=== PATIENT | female | born 2000 | race Two or more races ===

== ENCOUNTER 2024-10-28 13:38 | Outpatient (AMB) | payer MEDICAID, SELFPAY ==
[2024-10-28 13:48] VITALS: BP 139/84; PULSE 80; RESP 16; TEMP 36.8; O2SAT 99; BMI 33.5
--- NOTE | 2024-10-28 13:48 | OBCLNT_ITS ---
Vital Signs 10/28/24 13:48 Height 1.5 m Height Method Stated Weight 75.296 kg Weight Measurement Method Standing Scale BMI 33.5 BP 139/84 H Blood Pressure Source Automatic Cuff Blood Pressure Location Left Upper Arm Position Sitting Respiration 16 Pulse 80 Pulse Source Monitor Temp 98.2 F Temp Source Oral Pulse Oximetry (%) 99 Oxygen Delivery Method Room Air Allergies/Home Meds Allergies & Medications Allergies No Known Allergies Allergy (Verified 10/28/24 13:50) Medication Reconciliation No Known Home Medications 10/28/24 [History Confirmed 10/28/24] Intake Visit Data Collection New Patient or Established: Established Patient (seen at [facility] within 3 years) Reason for Visit:: OB Transfer of Care Seen by Clinical Staff ONLY (RN/MA): No Agricultural Produce 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 Discussed the benefits of quitting smoking with patient. Encouraged patient to quit smoking and provided Cessation assistance materials and resources. Tobacco Use: Cigarette Years smoked: 10 Are you interested in Quitting?: Yes Would you like additional Smoking Cessation Counseling?: Yes Questionnaires Covid-19 Vaccine Questionnaire Has patient been vacinated for Covid-19 Have you been vacinated for Covid-19: Yes PHQ-9 PHQ-2 Over the last 2 weeks, how often have you been bothered by any of the following problems? 1. Little interest or pleasure in doing things: not at all 2. Feeling down, depressed, or hopeless: not at all Total score: 0 PHQ-9 3. Trouble falling or staying asleep, or sleeping too much: Not at all 4. Feeling tired or having little energy: Not at all 5. Poor appetite or overeating: Not at all 6. Feeling bad about yourself - or that you are a failure or have let yourself or your family down: Not at all 7. Trouble concentrating on things, such as reading the newspaper or watching television: Not at all 8. Moving or speaking so slowly that other people could have noticed? - Or the opposite - being so fidgety or restless that you have been moving around a lot more than usual: not at all 9. Thoughts that you would be better off or of hurting yourself in some way: Not at all Total score: 0 If you checked off any problems, how difficult have these problems made it for you to do your work, take care of things at home, or get along with other people?: not difficult at all Source: Developed by Drs. Jadiel Miranda, Elsie Sosa, Reji Loco and colleagues, with an educational chelsea from [employer]. Social History Living Situation History Housing: House Tobacco History Smoking Status: Light (< 1 pack/day) Second Hand Smoke Exposure: Yes Alcohol History Alcohol Intake: Never Domestic Abuse History Do You Feel Safe at Home: Yes Past Medical History Past Medical History Have you ever been diagnosed with any of the following: Neurological Problems Seizures: No Cardiology Problems Congestive Heart Failure: No Hypertension: Yes Respiratory Problems Chronic Obstructive Pulmonary Disease (COPD): No Stomache/Intestinal Problems Hepatitis: No Genital/Urinary Problems Renal Disease: No Endocrine Problems Diabetes Mellitus Type 1: No Diabetes Mellitus Type 2: No Other Problems Hospitalization: No Down Syndrome: No Developmental Delay: No Shingles: No Falls: No Blood Transfusions: No Blood Transfusion Reaction: No Anesthesia Reactions: No Organ Transplant: No Chemotherapy: No Radiation Therapy: No Hyperbaric Therapy: No MRSA: No VRSA: No Vancomycin-Resistant Enterococci: No Human Immunodeficiency Virus (HIV): No Chicken Pox: No Measles: No Mumps: No Rubella (Tristanian Measles): No Pertussis: No Clostridium Difficile: No Cancer: No History of Present Illness HPI Narrative Patient presents for transfer of care at 31 weeks and 5 days gestation. Her last menstrual period was 02-17-2024, with an initial estimated due date of 11-23-2024. However, a 10-week 5-day ultrasound adjusted the due date to 12-25-2024, which was confirmed by a subsequent 26-week 3-day ultrasound. The patient is with a history of hypertension, type 2 diabetes, and one previous section due to preeclampsia. She is currently taking metformin, labetalol, and baby aspirin. Her recent blood pressure readings have been 138-140. The patient reports experiencing cramps, which are attributed to the stretching of the scar as the fetus grows. She notes that the cramps can be severe enough to prevent movement, but they typically resolve within 30 minutes. Her blood sugar levels are being monitored, with morning and post-meal levels discussed. Recent lab results show blood group A positive, hemoglobin 13.8, platelet count 183, rubella immune, RPR non-reactive, hepatitis B-negative, HIV- negative, gonorrhea and chlamydia-negative, one-hour glucose 178, and AFB negative. The patient is scheduled for twice-weekly hospital visits to monitor the baby and check her blood pressure. A is planned for 37 or 38 weeks, depending on blood pressure control. Medical History includes hypertension, type 2 diabetes, previous section, and history of preeclampsia. Current medications include metformin, labetalol, and baby aspirin. The patient reports cramps attributed to stretching of scar in the musculoskeletal system review. Diagnostic Test Results and Labs: - Ultrasound (06-04-2024): 10-week 5-day ultrasound yields a due date of 12-25-2024 - Ultrasound (Date N/A): 26 weeks and 3 days ultrasound is consistent with the first trimester ultrasound - Blood group: A positive - Hemoglobin: 13.8 - Platelet count: 183 - Rubella: Immune - RPR: Non-reactive - Hepatitis B: Negative - HIV: Negative - Gonorrhea and chlamydia: Negative - One-hour glucose: 178 - AFB: Negative OB Initial Visit Menstrual History Menstrual reliability: definite Flow: normal Menstrual regularity: regular Monthly: Yes Age at menarche: 10 On control pills at conception: Yes OB History : 3 Para: 2 Hx # Pregnancies: 1 Hx Total # of Abortions (Spontaneous & Elective): 1 # of Living Children: 1 Delivery History 1st : Child's name: HUSAM date: 06/10/21 sex: male Gestational age at delivery (weeks): 32 Delivery type: weight (lbs): 2721.554 g History of depression before or after : No Infection History & Risk Evaluation History of STDs: none HIV risk evaluation: low risk Hepatitis B risk evaluation: low risk Patient or partner has history of Genital Herpes: No Varicella/chicken pox status: immunized Genetic Screening & History Genetic Screening/Teratology Counseling - Includes patient, baby's father, or anyone in either family with: 1. Patient's age 35 years or older as of estimated date of delivery: No 2. Thalassemia (Nepali, Portuguese, Mediterranean, or Background); MCV less than 80: No 3. Neural Tube Defect (Meningomyelocele, Spina Bifida, or Anencephaly): No 4. Congenital Heart Defect: No 5. Down Syndrome: No 6. Shaji-Sachs (Ashkenazi Roman Catholic, Cajun, Bulgarian [place] Citizen): No 7. Beba Disease (Ashkenazi Roman Catholic): No 8. Familial Dysautonomia (Ashkenazi Roman Catholic): No 9. Sickle Cell Disease or Trait (): No 10. Hemophilia or other blood disorders: No 11. Muscular Dystrophy: No 12. Cystic Fibrosis: No 13. Yalobusha's Chorea: No 14. Mental Retardation/Autism: No 15. Other inherited genetic or chromosomal disorder: No 16. Maternal Metabolic Disorder (EG,TYPE 1 Diabetes, PKU): No 17. Patient or baby's father had a child with defects not listed above: No 18. Recurrent loss or a stillbirth: No 19. Medications (including supplements, vitamins, herbs or otc drugs)/illicit/recreational drugs/alcohol since last menstrual period: No 20. Any other: No Infection History 1. Live with someone with TB or exposed to TB: No 2. Rash or viral illness since last menstrual period: No 3. Hepatitis B,C: No Other (see comments) Source: [employer] OB Flowsheet OB Flowsheet Initial Weight: Not Recorded Date -?-?-?-?-?-?-?-?-?-?-?-?- EGA Weight Edema CTX Effacement BP Fundal ht Pres Dilation Effacement Station Visit Note Alb Glu FHR Mov 10/28/24 -?-?-?-?-?-?-?-?-?-?-?-?- 32w 1d 75.296 kg 139/84 145 Review of Systems Review of Systems Systems Reviewed: All systems reviewed, normal except as documented Exam General Limitations: no limitations General Appearance: alert, in no apparent distress, comfortable, cooperative, healthy appearing, well developed and well groomed Head Head exam: atraumatic, normocephalic and normal inspection Neck Neck exam: Present normal inspection, full ROM and trachea midline Chest Chest inspection: Present normal inspection and symmetric chest wall rise Abdominal Abdominal exam: Present soft and normal bowel sounds Extremities Extremities exam: Present normal inspection and full ROM Back Back exam: Present normal inspection and full ROM Psych Psychiatric exam: Present normal affect and normal mood Skin Skin exam: Present warm, dry, intact and normal color Assessment & Plan Diagnosis / Problem List (1) Type 2 diabetes mellitus affecting in third trimester, antepartum: Status: Acute Plan: Type 2 Diabetes Mellitus: Continue metformin 500 mg BID. Monitor blood glucose levels (morning and post-meal). Assess need for additional diabetic management based on glucose monitoring results. (2) Chronic hypertension with exacerbation during : Status: Acute Plan: Chronic Hypertension: Continue labetalol 200 mg TID. Weekly blood pressure checks. Monitor for signs of preeclampsia. (3) Supervision of high risk , unspecified, third trimester: Status: Acute (4) Maternal care for low transverse scar from previous delivery: Status: Acute Plan: (, 31w5d): Schedule bi-weekly hospital visits for monitoring and blood pressure checks. Plan for at 37 or 38 weeks depending on blood pressure control. Ultrasound scheduled for tomorrow at [facility]. Weekly appointments scheduled for next three weeks. Book after reviewing tomorrow's ultrasound results. Continue metformin 500 mg BID, labetalol 200 mg TID, and baby aspirin. Monitor blood glucose levels (morning and post-meal). Perform additional labs to check kidney function, liver function, and urinalysis. Advise warm showers, hydration, and rest for cramping; instruct to go to hospital if pain becomes severe. Office Procedures OB Clinic LOC & Office Proc's Nursing/Assessment Patient Status: Initial/New Patient OB Clinic Nursing Assessment: BP Monitoring, Medication Reconciliation, Update PMH in EMR and Vital Signs OB Clinic Coordination of Care: Consent,records obtained, informed consent, Ed ucation Simp Pt/Fam, 1 Ins Authorization, Lab and Imaging orders and Staff clarify orders Special Needs: Heart tones New Patient Charge New Patient Point Assignment: [id number] New Patient Point Charge: BILINGUAL LEGAL ASSISTANT Level 4 (3099-3609) Antepartum Initial or Follow-up Antepartum Initial Visit: Yes
== END 2024-10-28 14:05 | disposition home or self-care (01) ==
LOC: HODSOBC 13:38
PROVIDERS: PCP Family Medicine; Supervising Provider Obstetrics & Gynecology; Visit Provider Obstetrics & Gynecology
DX: O09.93 Supervision of high risk pregnancy, unspecified, third trimester (principal); O10.913 Unspecified pre-existing hypertension complicating pregnancy, third trimester; O34.211 Maternal care for low transverse scar from previous cesarean delivery; O24.113 Pre-existing type 2 diabetes mellitus, in pregnancy, third trimester; Z3A.31 31 weeks gestation of pregnancy
CPT/HCPCS: 99204; 99214; G0463

== ENCOUNTER 2024-11-04 13:09 | Outpatient (AMB) | payer MEDICAID, SELFPAY ==
[2024-11-04 13:26] VITALS: BP 136/89; PULSE 92; RESP 16; TEMP 36.8; O2SAT 97; BMI 34.1
--- NOTE | 2024-11-04 13:26 | AMB.OBVISIT ---
Vital Signs 11/04/24 13:26 Height 1.5 m Height Method Stated Weight 76.771 kg Weight Measurement Method Standing Scale BMI 34.1 BP 136/89 H Blood Pressure Source Automatic Cuff Blood Pressure Location Left Upper Arm Position Sitting Respiration 16 Pulse 92 Pulse Source Monitor Temp 98.2 F Temp Source Oral Pulse Oximetry (%) 97 Oxygen Delivery Method Room Air Allergies/Home Meds Allergies & Medications Allergies No Known Allergies Allergy (Verified 11/04/24 13:28) Medication Reconciliation No Known Home Medications 10/28/24 [History Confirmed 10/28/24] Intake Visit Data Collection New Patient or Established: Established Patient (seen at [facility] within 3 years) Reason for Visit:: OBC Seen by Clinical Staff ONLY (RN/MA): No Telephone Operator Required: No Do You Feel Safe at Home: Yes Authorities Contacted: N/A PCP or OBGYN visit in last 3 months: Yes Date of Last PCP or OBGYN visit: 10/28/24 Hx Now: Yes Are you currently on any form of Control: No Pain Present Currently: No Pain Scale Used: Choi-Malik/Numerical Pain scale:: 0 Smoking Status Smoking Status: Never smoker Questionnaires Covid-19 Vaccine Questionnaire Has patient been vacinated for Covid-19 Have you been vacinated for Covid-19: Yes PHQ-9 PHQ-2 Over the last 2 weeks, how often have you been bothered by any of the following problems? 1. Little interest or pleasure in doing things: not at all 2. Feeling down, depressed, or hopeless: not at all Total score: 0 PHQ-9 8. Moving or speaking so slowly that other people could have noticed? - Or the opposite - being so fidgety or restless that you have been moving around a lot more than usual: not at all Source: Developed by Drs. Jadiel Miranda, Elsie Sosa, Reji Looc and colleagues, with an educational chelsea from [employer]. Depression screen completed yes Social History Living Situation History Marital Status: Single Lives With: Family Housing: House Tobacco History Smoking Status: Never smoker Second Hand Smoke Exposure: Yes Alcohol History Alcohol Intake: Never Domestic Abuse History Do You Feel Safe at Home: Yes Past Medical History Past Medical History Have you ever been diagnosed with any of the following: Neurological Problems Seizures: No Cardiology Problems Congestive Heart Failure: No Hypertension: Yes Respiratory Problems Chronic Obstructive Pulmonary Disease (COPD): No Stomache/Intestinal Problems Hepatitis: No Genital/Urinary Problems Renal Disease: No Endocrine Problems Diabetes Mellitus Type 1: No Diabetes Mellitus Type 2: No Other Problems Hospitalization: No Down Syndrome: No Developmental Delay: No Shingles: No Falls: No Blood Transfusions: No Blood Transfusion Reaction: No Anesthesia Reactions: No Organ Transplant: No Chemotherapy: No Radiation Therapy: No Hyperbaric Therapy: No MRSA: No VRSA: No Vancomycin-Resistant Enterococci: No Human Immunodeficiency Virus (HIV): No Chicken Pox: No Measles: No Mumps: No Rubella (Estonian Measles): No Pertussis: No Clostridium Difficile: No Cancer: No History of Present Illness HPI Narrative History of Present Illness Patient presents for a follow-up angela visit at 33 weeks and 1 day gestation. She is with a history of hypertension, type 2 diabetes mellitus, and previous section for preeclampsia. Recent preeclampsia labs were performed on 10/28/2024, revealing a hemoglobin of 11.3, random glucose of 137, and creatinine of 0.51. CMP showed slightly elevated alkaline phosphatase of 130, AST 11, and ALT 10. Urine uteujfm-vm-aoxofwrgzi ratio was 187.1, and LDH was low at 114. The patient reports checking her blood glucose levels once or twice daily. Her fasting glucose levels are typically in the 80s, while postprandial levels have been elevated, ranging from 150-170 mg/dL. She is currently taking metformin twice daily for glycemic control. The patient denies any signs or symptoms of preeclampsia in this . Medications and Supplements - Metformin, taken 2 times a day - heart rate: 155 bpm - Abdomen: Fundal height measured at 33 weeks. Laboratory, Imaging, and Diagnostic Test Results - Hemoglobin: 11.3 g/dL (10/28/2024) - Random glucose: 137 mg/dL (10/28/2024) - Creatinine: 0.51 mg/dL (10/28/2024) - Comprehensive Metabolic Panel (CMP): - Alkaline phosphatase: 130 U/L (slightly elevated) - AST: 11 U/L - ALT: 10 U/L - Urine protein/creatinine ratio: 187.1 mg/g - LDH: 114 U/L (low) Review of Systems Review of Systems Systems Reviewed: All systems reviewed, normal except as documented Visit LEXX Calculator Estimated Delivery Date Method Current WG Current Estimate 12/22/24 Ultrasound #2 33w 1d Other Estimates 11/23/24 LMP (Uncertain) 37w 2d 12/26/24 Ultrasound #1 32w 4d Initial Weight: Not Recorded Date <del>?</del> EGA Weight Edema CTX Effacement BP Fundal ht Pres Dilation Effacement Station Visit Note Alb Glu FHR Mov 10/28/24 <del>?</del> 32w 1d 75.296 kg 139/84 145 Exam General Limitations: no limitations General Appearance: alert, in no apparent distress, comfortable, cooperative, healthy appearing, well developed and well groomed Head Head exam: atraumatic, normocephalic and normal inspection Neck Neck exam: Present normal inspection, full ROM and trachea midline Chest Chest inspection: Present normal inspection and symmetric chest wall rise Abdominal Abdominal exam: Present soft and normal bowel sounds Extremities Extremities exam: Present normal inspection and full ROM Back Back exam: Present normal inspection and full ROM Psych Psychiatric exam: Present normal affect and normal mood Skin Skin exam: Present warm, dry, intact and normal color Assessment & Plan Diagnosis / Problem List (1) Type 2 diabetes mellitus affecting in third trimester, antepartum: Status: Acute (2) Chronic hypertension with exacerbation during : Status: Acute (3) Supervision of high risk , unspecified, third trimester: Status: Acute Plan: at 33 weeks 1 day, Patient is a 33 weeks 1 day woman with status. She has a history of hypertension, type 2 diabetes mellitus, and previous section for preeclampsia. Recent preeclampsia labs show hemoglobin 11.3, random glucose 137, creatinine 0.51, slightly elevated alkaline phosphatase 130, AST 11, ALT 10, urine protein/creatinine ratio 187.1, and LDH 114. These results indicate good kidney and liver function without signs of preeclampsia, allowing for continuation of to full term (39 weeks). - Continue monitoring until 39 weeks - Follow-up appointment in 2 weeks - Patient to monitor and record blood glucose levels 4 times daily (fasting and 1 hour after each meal) - Continue current metformin regimen (twice daily) - Patient to bring recorded blood glucose levels to next appointment Repeat on 12/09/2024@07:30 Type 2 Diabetes Mellitus Patient reports blood glucose levels of 80s fasting, and 150-170 post-prandial. She is currently on metformin twice daily. The clinician considers these levels acceptable for a patient on metformin, but emphasizes the importance of continued monitoring. - Continue metformin twice daily - Monitor blood glucose 4 times daily (fasting and 1 hour post-prandial) - Record blood glucose readings and bring to next appointment - Target post-prandial glucose levels below 180 (4) Maternal care for low transverse scar from previous delivery: Status: Acute Office Procedures OB Clinic LOC & Office Proc's Nursing/Assessment Patient Status: Established Patient OB Clinic Nursing Assessment: BP Monitoring, Medication Reconciliation, Update PMH in EMR and Vital Signs OB Clinic Coordination of Care: Consent,records obtained, informed consent, Education Simp Pt/Fam and Staff clarify orders Special Needs: Heart tones Established Patient Charge Established Patient Point Assignment: 105 Established Patient Point Charge: EP Level 3 (80-115)
== END 2024-11-04 13:35 | disposition home or self-care (01) ==
LOC: HODSOBC 13:09
PROVIDERS: PCP Obstetrics & Gynecology; Referring Provider Obstetrics & Gynecology; Supervising Provider Obstetrics & Gynecology; Visit Provider Obstetrics & Gynecology
DX: O09.93 Supervision of high risk pregnancy, unspecified, third trimester (principal); O24.113 Pre-existing type 2 diabetes mellitus, in pregnancy, third trimester; Z3A.33 33 weeks gestation of pregnancy; O34.211 Maternal care for low transverse scar from previous cesarean delivery
CPT/HCPCS: 99213; G0463

== ENCOUNTER 2024-11-10 09:02 | Outpatient (AMB) | payer MEDICAID, SELFPAY ==
[2024-11-10 09:10] VITALS: BP 151/101; PULSE 79; RESP 16; TEMP 36.2; O2SAT 98; BMI 33.5
--- NOTE | 2024-11-10 09:10 | AMB.OBVISIT ---
Vital Signs 11/10/24 09:10 Height 1.5 m Height Method Stated Weight 75.41 kg Weight Measurement Method Standing Scale BMI 33.5 BP 151/101 H Blood Pressure Source Automatic Cuff Blood Pressure Location Left Upper Arm Position Supine Respiration 16 Pulse 79 Pulse Source Monitor Temp 97.2 F Temp Source Oral Pulse Oximetry (%) 98 Oxygen Delivery Method Room Air Allergies/Home Meds Allergies & Medications Allergies No Known Allergies Allergy (Verified 11/11/24 12:48) Medication Reconciliation labetalol 200 mg tablet mg 11/10/24 [History] metformin 500 mg tablet mg 11/10/24 [History] vit no.95-ferrous fumarate 28 mg-folic acid 800 mcg tablet () tab PO 11/10/24 [History] Intake Visit Data Collection New Patient or Established: Established Patient (seen at [facility] within 3 years) Reason for Visit:: OBC Seen by Clinical Staff ONLY (RN/MA): No Solid Waste Facility Supervisor Required: No Do You Feel Safe at Home: Yes Authorities Contacted: N/A PCP or OBGYN visit in last 3 months: Yes Date of Last PCP or OBGYN visit: 11/10/24 Hx Now: Yes Are you currently on any form of Control: No Pain Present Currently: No Pain Scale Used: Choi-Malik/Numerical Pain scale:: 0 Smoking Status Smoking Status: Never smoker Questionnaires Covid-19 Vaccine Questionnaire Has patient been vacinated for Covid-19 Have you been vacinated for Covid-19: No PHQ-9 PHQ-2 Over the last 2 weeks, how often have you been bothered by any of the following problems? 1. Little interest or pleasure in doing things: not at all 2. Feeling down, depressed, or hopeless: not at all Total score: 0 PHQ-9 3. Trouble falling or staying asleep, or sleeping too much: Not at all 4. Feeling tired or having little energy: Not at all 5. Poor appetite or overeating: Not at all 6. Feeling bad about yourself - or that you are a failure or have let yourself or your family down: Not at all 7. Trouble concentrating on things, such as reading the newspaper or watching television: Not at all 8. Moving or speaking so slowly that other people could have noticed? - Or the opposite - being so fidgety or restless that you have been moving around a lot more than usual: not at all 9. Thoughts that you would be better off or of hurting yourself in some way: Not at all Total score: 0 Source: Developed by Drs. Jadiel Miranda, Elsie Sosa, Reji Loco and colleagues, with an educational chelsea from [employer]. Depression screen completed yes Social History Living Situation History Marital Status: Lives With: Family Housing: House Tobacco History Smoking Status: Never smoker Second Hand Smoke Exposure: Yes Alcohol History Alcohol Intake: Never Domestic Abuse History Do You Feel Safe at Home: Yes Past Medical History Past Medical History Have you ever been diagnosed with any of the following: Neurological Problems Seizures: No Cardiology Problems Congestive Heart Failure: No Hypertension: Yes Respiratory Problems Chronic Obstructive Pulmonary Disease (COPD): No Stomache/Intestinal Problems Hepatitis: No Genital/Urinary Problems Renal Disease: No Endocrine Problems Diabetes Mellitus Type 1: No Diabetes Mellitus Type 2: No Other Problems Hospitalization: No Down Syndrome: No Developmental Delay: No Shingles: No Falls: No Blood Transfusions: No Blood Transfusion Reaction: No Anesthesia Reactions: No Organ Transplant: No Chemotherapy: No Radiation Therapy: No Hyperbaric Therapy: No MRSA: No VRSA: No Vancomycin-Resistant Enterococci: No Human Immunodeficiency Virus (HIV): No Chicken Pox: No Measles: No Mumps: No Rubella (Japanese Measles): No Pertussis: No Clostridium Difficile: No Cancer: No History of Present Illness HPI Narrative patient at 34 weeks gestation presents for routine visit with significantly elevated blood pressure of 160/100. Patient denies pain but reports movement described as kicking. Patient states she took her blood pressure medication just before coming to the appointment. Patient has been monitoring blood glucose levels at home, with readings mostly within normal range except for one reading of 160. No CTX/LOF/VB, reports good FM+ Visit LEXX Calculator Estimated Delivery Date Method Current WG Current Estimate 12/22/24 Ultrasound #2 34w 2d Other Estimates 11/23/24 LMP (Uncertain) 38w 3d 12/26/24 Ultrasound #1 33w 5d Initial Weight: Not Recorded Date <del>?</del> EGA Weight Edema CTX Effacement BP Fundal ht Pres Dilation Effacement Station Visit Note Alb Glu FHR Mov 10/28/24 <del>?</del> 32w 1d 75.296 kg 139/84 145 Assessment & Plan Diagnosis / Problem List (1) Type 2 diabetes mellitus affecting in third trimester, antepartum: Status: Acute (2) Chronic hypertension with exacerbation during : Status: Acute Plan: Gestational hypertension with severe features at 34 weeks gestation patient at 34 weeks gestation presents with significantly elevated blood pressure of 160/100, indicating gestational hypertension with severe features. Patient denies pain but reports movement. Recent blood glucose readings are mostly within acceptable range, with one reading at 160. Patient reports taking antihypertensive medication just prior to the visit, which may not have taken full effect yet. - Immediate referral to labor and delivery for preeclampsia evaluation - Admission and potential delivery as clinically indicated - Laboratory tests to be performed at the hospital - Follow-up appointment scheduled for one week as a precaution - Continue monitoring blood glucose levels (3) Supervision of high risk , unspecified, third trimester: Status: Acute (4) Maternal care for low transverse scar from previous delivery: Status: Acute Office Procedures OB Clinic LOC & Office Proc's Nursing/Assessment Patient Status: Established Patient OB Clinic Nursing Assessment: BP Monitoring, Medication Reconciliation, Update PMH in EMR and Vital Signs OB Clinic Coordination of Care: Complex Care and Chronic Disease 1-5, Consent,records obtained, informed consent, Education Simp Pt/Fam and Staff clarify orders Established Patient Charge Established Patient Point Assignment: 100 Established Patient Point Charge: EP Level 3 (80-115)
== END 2024-11-10 09:19 | disposition home or self-care (01) ==
LOC: HODSOBC 09:02
PROVIDERS: PCP Obstetrics & Gynecology; Referring Provider Obstetrics & Gynecology; Supervising Provider Obstetrics & Gynecology; Visit Provider Obstetrics & Gynecology
DX: O09.93 Supervision of high risk pregnancy, unspecified, third trimester (principal); O24.113 Pre-existing type 2 diabetes mellitus, in pregnancy, third trimester; O10.913 Unspecified pre-existing hypertension complicating pregnancy, third trimester; Z3A.34 34 weeks gestation of pregnancy; O34.211 Maternal care for low transverse scar from previous cesarean delivery
CPT/HCPCS: 99213; G0463

== ENCOUNTER 2024-11-10 09:30 | Observation (INO) | payer MEDICAID, SELFPAY ==
[2024-11-10] VITALS (8 sets, daily range): BP systolic 128–152; BP diastolic 82–101; PULSE 68–88; RESP 17–98; TEMP 36.9; BMI 33.9
--- NOTE | 2024-11-10 09:34 | XR_ITS ---
Examination: Biophysical profile, ultrasound Date and time of exam: November 10, 2024 1106 hours INDICATIONS: Diagnosis hypertension, diagnosis diabetes Technique: Multiple transabdominal sonographic images of the pelvis abdomen obtained. Attention is directed to the breathing movement, gross body movement, amniotic fluid volume and tone. Findings: Amniotic fluid index 13.5 cm Total biophysical profile is 8 of 8. breathing movement is 2. Gross body movement is 2. tone is 2. Qualitative amniotic fluid volume is 2 Impression: Biophysical profile is 8 of 8.
[2024-11-10 10:33] LABS: Basophils % (Auto) 0 % (0-2.5); Eosinophils # (Auto) 0.1 Thou/mm3 (0.0-0.5); Eosinophils % (Auto) 2 % (0-10); Hematocrit 33.3 % (36.0-46.0); Hemoglobin 11.4 g/dL (12.0-16.0); Immature Granulocytes % (Auto) 1 % (0-0); Immature Granulocytes Auto 0.05 Thou/mm3 (0.00-0.00); Lymphocytes # (Auto) 2.9 Thou/mm3 (1.0-4.8); Lymphocytes % (Auto) 31 % (10-50); Mean Corpuscular HGB Conc 34.2 g/dl (31.0-37.0); Mean Corpuscular Hemoglobin 28.1 pg (25.0-35.0); Mean Corpuscular Volume 82 fL (80-100); Monocytes # (Auto) 0.4 Thou/mm3 (0.0-0.8); Monocytes % (Auto) 4 % (0-12); Neutrophils # (Auto) 5.8 Thou/mm3 (1.8-7.7); Neutrophils % (Auto) 62 % (37-80); Nucleated Red Blood Cell % 0 /100 WBC (0); Platelet Count 187 Thou/mm3 (140-440); RDW Standard Deviation 39.6 fL (36.4-46.3); Red Blood Count 4.06 Miln/mm3 (4.00-5.20); White Blood Count 9.3 Thou/mm3 (3.6-11.0)
[2024-11-10 10:33] LABS: Collection Type, Urine Clean Catch
[2024-11-10 10:52] LABS: INR 0.9 (0.9-1.3); Partial Thromboplastin Time 28.6 Seconds (22.0-36.0); Prothrombin Time 10.3 Seconds (9.0-12.2)
[2024-11-10 11:01] LABS: Alanine Aminotransferase < 7 U/L (10-49); Albumin, Serum 3.8 gm/dL (3.5-5.0); Albumin/Globulin Ratio 1.4 (1.2-2.2); Alkaline Phosphatase 124 U/L (46-116); Anion Gap 9 (7-16); Aspartate Amino Transferase 12 U/L (0-34); BUN/Creatinine Ratio 10 Ratio (12-20); Bilirubin,Total 0.3 mg/dL (0.3-1.2); Blood Urea Nitrogen 5 mg/dL (9-23); Calcium 9.2 mg/dL (8.3-10.6); Calcium (Corrected) 9.4 mg/dL (8.5-10.1); Carbon Dioxide 19.6 mMol/L (20.0-31.0); Chloride 106 mMol/L (98-107); Creatinine (Component) 0.5 mg/dL (0.6-1.3); Estimated Creatinine Clearance 151.8 mL/min (>60); Globulin 2.8 gm/dL (2.3-3.5); Glucose 80 mg/dL (74-106); LDH (Lactate Dehydrogenase) 135 U/L (120-246); Osmolality,Calculated 266 (275-295); Potassium 3.9 mMol/L (3.4-5.1); Sodium 135 mMol/L (136-145); Total Protein 6.6 gm/dL (5.7-8.2); Uric Acid 5.8 mg/dL (3.1-7.8); eGFR > 60 See Note
[2024-11-10 11:07] LABS: Syphilis Nonreactive (Nonreactive)
[2024-11-10 11:18] LABS: Bacteria,Urine 1+; Bilirubin,Urine Negative (Negative); Blood,Urine Negative (Negative); Clarity,Urine Turbid (Clear/Hazy); Color,Urine Lt-Yellow (Lt Yel-Yel); Glucose, Urine Negative (Negative); Ketones,Urine Negative (Negative); Leukocyte Esterase,Urine Positive (Negative); Nitrite,Urine Negative (Negative); Protein,Urine Negative (Neg - Trace); RBC,Urine 2 /hpf (0-3); Specific Gravity,Urine 1.012 (1.001-1.035); Squamous Epithelial Cell,Urine 37 /hpf (0-5); Urobilinogen,Urine Negative mg/dL (0.0-1.0); WBC,Urine 3 /hpf (0-5)
[2024-11-10 11:28] LABS: Fibrinogen 602 mg/dL (175-375)
== END 2024-11-10 12:10 | disposition home or self-care (01) ==
PROVIDERS: Admitting Provider Obstetrics & Gynecology; Visit Provider Obstetrics & Gynecology
DX: Z34.83 Encounter for supervision of other normal pregnancy, third trimester (principal); Z3A.33 33 weeks gestation of pregnancy
CPT/HCPCS: 36415; 59025; 59899; 76819; 80053; 81001; 83615; 84550; 85025; 85384; 85610; 85730; 86780; 86850; 86900; 86901

== ENCOUNTER 2024-11-11 12:24 | Outpatient (CLI) | payer MEDICAID, SELFPAY ==
[2024-11-11 12:37] VITALS: BP 121/73; PULSE 84
[2024-11-11 12:39] VITALS: BP 115/66; PULSE 84
[2024-11-11 12:52] VITALS: BP 121/73; PULSE 84; RESP 16; RESP 99; TEMP 36.7
[2024-11-11 12:59] VITALS: BP 124/83; PULSE 77
[2024-11-11 14:10] LABS: Protein Total, Urine 13 mg/dL (1-14)
[2024-11-11 14:35] LABS: Protein Total, 24 hr Urine 237 mg/24hr (<149); Protein Total, Urine Volume 1825 mL/24hr (600-1800)
== END 2024-11-11 13:21 | disposition home or self-care (01) ==
LOC: S4S1 12:29 → S4SX 12:29
PROVIDERS: Referring Provider Obstetrics & Gynecology; Visit Provider Obstetrics & Gynecology
DX: Z34.83 Encounter for supervision of other normal pregnancy, third trimester (principal); Z36.9 Encounter for antenatal screening, unspecified; Z3A.33 33 weeks gestation of pregnancy
CPT/HCPCS: 59025; 84156

== ENCOUNTER 2024-11-14 16:28 | Outpatient (CLI) | payer MEDICAID, SELFPAY ==
[2024-11-14] VITALS (20 sets, daily range): BP systolic 106–169; BP diastolic 75–95; PULSE 76–92; RESP 16–99; TEMP 36.8; O2SAT 98; BMI 33.9
[2024-11-14 17:09] LABS: Basophils % (Auto) 0 % (0-2.5); Eosinophils # (Auto) 0.1 Thou/mm3 (0.0-0.5); Eosinophils % (Auto) 1 % (0-10); Hematocrit 31.3 % (36.0-46.0); Hemoglobin 10.8 g/dL (12.0-16.0); Immature Granulocytes % (Auto) 0 % (0-0); Immature Granulocytes Auto 0.04 Thou/mm3 (0.00-0.00); Lymphocytes # (Auto) 2.9 Thou/mm3 (1.0-4.8); Lymphocytes % (Auto) 32 % (10-50); Mean Corpuscular HGB Conc 34.5 g/dl (31.0-37.0); Mean Corpuscular Hemoglobin 27.8 pg (25.0-35.0); Mean Corpuscular Volume 81 fL (80-100); Monocytes # (Auto) 0.4 Thou/mm3 (0.0-0.8); Monocytes % (Auto) 4 % (0-12); Neutrophils # (Auto) 5.6 Thou/mm3 (1.8-7.7); Neutrophils % (Auto) 62 % (37-80); Nucleated Red Blood Cell % 0 /100 WBC (0); Platelet Count 184 Thou/mm3 (140-440); RDW Standard Deviation 39.3 fL (36.4-46.3); Red Blood Count 3.89 Miln/mm3 (4.00-5.20)
[2024-11-14 17:16] LABS: Creatinine,Urine 64 mg/dL (30-125); Patient Height,Urine 59 Inches; Patient Weight,Urine 168 Pounds; Protein Total, Random Urine 14 mg/dL (1-14); Protein Total, Urine 14 mg/dL (1-14)
[2024-11-14 17:32] LABS: INR 0.9 (0.9-1.3); Partial Thromboplastin Time 28.1 Seconds (22.0-36.0); Prothrombin Time 10.3 Seconds (9.0-12.2)
[2024-11-14 17:34] LABS: Collection Type, Urine Clean Catch
[2024-11-14 17:37] LABS: Alanine Aminotransferase 8 U/L (10-49); Albumin, Serum 3.7 gm/dL (3.5-5.0); Albumin/Globulin Ratio 1.4 (1.2-2.2); Alkaline Phosphatase 124 U/L (46-116); Anion Gap 10 (7-16); Aspartate Amino Transferase < 10 U/L (0-34); BUN/Creatinine Ratio 13 Ratio (12-20); Bilirubin,Total 0.2 mg/dL (0.3-1.2); Blood Urea Nitrogen 8 mg/dL (9-23); Calcium 9.3 mg/dL (8.3-10.6); Calcium (Corrected) 9.5 mg/dL (8.5-10.1); Carbon Dioxide 21.6 mMol/L (20.0-31.0); Chloride 104 mMol/L (98-107); Creatinine (Component) 0.6 mg/dL (0.6-1.3); Estimated Creatinine Clearance 126.5 mL/min (>60); Fibrinogen 617 mg/dL (175-375); Globulin 2.7 gm/dL (2.3-3.5); Glucose 103 mg/dL (74-106); LDH (Lactate Dehydrogenase) 124 U/L (120-246); Osmolality,Calculated 270 (275-295); Potassium 3.5 mMol/L (3.4-5.1); Sodium 136 mMol/L (136-145); Total Protein 6.4 gm/dL (5.7-8.2); Uric Acid 5.7 mg/dL (3.1-7.8); eGFR > 60 See Note
[2024-11-14 17:43] LABS: Bilirubin,Urine Negative (Negative); Blood,Urine Negative (Negative); Clarity,Urine Clear (Clear/Hazy); Color,Urine Yellow (Lt Yel-Yel); Glucose, Urine Negative (Negative); Hyaline Casts,Urine < 1 /hpf (0-1); Ketones,Urine Negative (Negative); Leukocyte Esterase,Urine Negative (Negative); Nitrite,Urine Negative (Negative); Protein,Urine 1+ (Neg - Trace); RBC,Urine 2 /hpf (0-3); Specific Gravity,Urine 1.027 (1.001-1.035); Squamous Epithelial Cell,Urine 3 /hpf (0-5); Urobilinogen,Urine Negative mg/dL (0.0-1.0); WBC,Urine 1 /hpf (0-5)
[2024-11-14 18:23] LABS: Creatinine (Component) 0.5 mg/dL (0.6-1.3); Estimated Creatinine Clearance 151.8 mL/min (>60); eGFR > 60 See Note
[2024-11-14 18:34] LABS: Collection Time,Urine 24 Hours; Creatinine 24 Hour,Urine 1.2 gm/24hr (0.6-1.5); Creatinine Clearance Urine 169 mL/min (90-139); Protein Total, 24 hr Urine 263 mg/24hr (<149); Protein Total, Urine Volume 1875 mL/24hr (600-1800); Serum Creatinine Result 0.5 mg/dL; Total Volume,Urine 1875 mL (600-1800)
== END 2024-11-14 18:54 | disposition home or self-care (01) ==
LOC: S4S1 16:32 → S4SX 16:33
PROVIDERS: Referring Provider Obstetrics & Gynecology; Visit Provider Obstetrics & Gynecology
DX: Z34.83 Encounter for supervision of other normal pregnancy, third trimester (principal); Z36.9 Encounter for antenatal screening, unspecified; Z3A.34 34 weeks gestation of pregnancy
CPT/HCPCS: 36415; 59025; 80053; 81001; 82565; 82575; 83615; 84156; 84550; 85025; 85384; 85610; 85730

== ENCOUNTER 2024-11-18 09:35 | Outpatient (AMB) | payer MEDICAID, SELFPAY ==
[2024-11-18 09:57] VITALS: BP 156/94; PULSE 74; RESP 16; TEMP 36.5; O2SAT 97; BMI 33.5
--- NOTE | 2024-11-18 09:57 | AMB.OBVISIT ---
Vital Signs 11/18/24 09:57 Height 1.5 m Height Method Stated Weight 75.353 kg Weight Measurement Method Standing Scale BMI 33.5 BP 156/94 H Blood Pressure Source Automatic Cuff Blood Pressure Location Left Upper Arm Position Sitting Respiration 16 Pulse 74 Pulse Source Monitor Temp 97.7 F Temp Source Oral Pulse Oximetry (%) 97 Oxygen Delivery Method Room Air Allergies/Home Meds Allergies & Medications Allergies No Known Allergies Allergy (Verified 11/25/24 10:18) Intake Visit Data Collection New Patient or Established: Established Patient (seen at [facility] within 3 years) Reason for Visit:: CARE Seen by Clinical Staff ONLY (RN/MA): No Dental Instrument Maker Required: No Do You Feel Safe at Home: Yes Authorities Contacted: N/A PCP or OBGYN visit in last 3 months: Yes Hx Now: Yes Are you currently on any form of Control: No Pain Present Currently: No Pain Scale Used: Choi-Malik/Numerical Pain scale:: 0 Smoking Status Smoking Status: Never smoker Questionnaires Covid-19 Vaccine Questionnaire Has patient been vacinated for Covid-19 Have you been vacinated for Covid-19: Yes PHQ-9 PHQ-2 Over the last 2 weeks, how often have you been bothered by any of the following problems? 1. Little interest or pleasure in doing things: not at all 2. Feeling down, depressed, or hopeless: not at all Total score: 0 PHQ-9 3. Trouble falling or staying asleep, or sleeping too much: Not at all 4. Feeling tired or having little energy: Not at all 5. Poor appetite or overeating: Not at all 6. Feeling bad about yourself - or that you are a failure or have let yourself or your family down: Not at all 7. Trouble concentrating on things, such as reading the newspaper or watching television: Not at all 8. Moving or speaking so slowly that other people could have noticed? - Or the opposite - being so fidgety or restless that you have been moving around a lot more than usual: not at all 9. Thoughts that you would be better off or of hurting yourself in some way: Not at all Total score: 0 Source: Developed by Drs. Jadiel Miranda, Elsie Sosa, Reji Loco and colleagues, with an educational chelsea from [employer]. Depression screen completed yes Social History Living Situation History Marital Status: Lives With: Family Housing: House Tobacco History Smoking Status: Never smoker Second Hand Smoke Exposure: Yes Alcohol History Alcohol Intake: Never Substance Use History Substance Use: NONE Domestic Abuse History Do You Feel Safe at Home: Yes Past Medical History Past Medical History Have you ever been diagnosed with any of the following: Neurological Problems Cerebrovascular Accident (CVA): No Transient Ischemic Attacks (TIA): No Dementia: No Alzheimer's Disease: No Parkinson's Disease: No Brain Tumor: No Meningitis: No Seizures: No Epilepsy: No Multiple Sclerosis: No Cerebral Palsy: No Amyotrophic Lateral Sclerosis (ALS/Leesa Gehrig's): No Guillain-Carlisle Syndrome: No Spina Bifida: No Paralysis: No Peripheral Neuropathy: No Olson's Palsy: No Subdural Hematoma: No Migraine: No Head Trauma: No Spinal Cord Injury: No Traumatic Brain Injury: No Cardiology Problems Myocardial Infarction: No Cardiac Arrhythmia: No Atrial Fibrillation: No Angina: No Heart Murmur: No Coronary Artery Disease: No Atherosclerotic Heart Disease: No Peripheral Vascular Disease: No Hypercholesterolemia: No Aneurysm: No Congestive Heart Failure: No Congenital Heart Disease: No Valvular Heart Disease: No Rheumatic Fever: No Cardiomyopathy: No Edema: No Pericarditis: No Hypertension: Yes Hypotension: No Respiratory Problems Chronic Obstructive Pulmonary Disease (COPD): No Asthma: No Bronchitis: No Emphysema: No Pneumonia: No Pulmonary Fibrosis: No Tuberculosis: No Pulmonary Embolism: No Pulmonary Edema: No Sleep Apnea: No CPAP Dependent: No Respiratory Aspiration: No Smoking: No Smoking Cessation Counseling: No Smoking Exposure: No Tobacco Use: No Stomache/Intestinal Problems Liver Cancer: No Hepatitis: No Cirrhosis: No Pancreatic Cancer: No Pancreatitis: No Celiac Disease: No Ulcerative Colitis: No Diverticulitis: No Diverticulosis: No Ulcer: No Genital/Urinary Problems Chronic Kidney Disease: No Renal Disease: No Kidney Stones: No Polycystic Kidney Disease: No Neurogenic Bladder: No Inguinal Hernia: No Dialysis: No Prostate Cancer: No Benign Prostatic Hyperplasia: No Reproductive Problems Breast Cancer: No Endometriosis: No Fibroids: No Genital Herpes: No Gonorrhea: No Syphilis: No Musculoskeletal Problems Muscular Dystrophy: No Myasthenia Gravis: No Marfan's Syndrome: No Bone Cancer: No Arthritis: No Rheumatoid Arthritis: No Osteoporosis: No Degenerative Disk Disease: No Gout: No Scoliosis: No Head,Eye,Nose,Throat Problems Cataracts: No Glaucoma: No Blind: No Retinal Detachment: No Macular Degeneration: No Chronic Ear Infections: No Deafness: No Eye Prosthesis: No Endocrine Problems Diabetes Mellitus Type 1: No Diabetes Mellitus Type 2: No Girdwood's Syndrome: No [place]'s Disease: No Thyroid Cancer: No Adrenal Disease: No Graves' Disease: No Blood Problems Anemia: No Leukemia: No Hemophilia: No Thalassemia: No Sickle Cell Disease: No Clotting Problems: No Psychologic Problems Schizophrenia: No Recreational Drug Use: No Bipolar Disorder: No Depression: No Anxiety: No Behavior Problems: No Self-Mutilation: No Attention Deficit Disorder: No Attention Deficit Hyperactivity Disorder: No Depression: No Post Traumatic Stress Disorder: No Eating Disorder: No Other Problems Hospitalization: No Autoimmune Disease: No Down Syndrome: No Autism: No Developmental Delay: No Shingles: No Falls: No Blood Transfusions: No Blood Transfusion Reaction: No Anesthesia Reactions: No Organ Transplant: No Chemotherapy: No Radiation Therapy: No Hyperbaric Therapy: No MRSA: No VRSA: No Vancomycin-Resistant Enterococci: No Human Immunodeficiency Virus (HIV): No Chicken Pox: No Measles: No Mumps: No Rubella (Sami Measles): No Pertussis: No Clostridium Difficile: No Cancer: No Surgical History Angioplasty: No Pacemaker: No Sinus Surgery: No History of Present Illness HPI Narrative 24-year-old at 35 weeks and 1 day gestation presents for care. Patient has a history of type 2 diabetes and gestational hypertension. She was seen in labor and delivery yesterday for a scheduled non-stress test and biophysical profile, during which she had persistently elevated blood pressures. The patient reports the baby is active and denies contractions or other issues. She has been checking her blood sugars, which she reports are okay. No CTX/LOF/VB, reports good FM+ Repeat on 12/09/2024@07:30 Diagnostic Test Results and Labs: - Ultrasound (06-04-2024): 10-week 5-day ultrasound yields a due date of 12-25-2024 - Ultrasound (date not specified): 26 weeks and 3 days ultrasound is consistent with the first trimester ultrasound - Blood group: A positive - Hemoglobin: 13.8 - Platelet count: 183 - Rubella: Immune - RPR: Non-reactive - Hepatitis B: Negative - HIV: Negative - Gonorrhea and chlamydia: Negative - One-hour glucose: 178 - AFB: Negative - Hemoglobin: 11.3 g/dL (10/28/2024) - Random glucose: 137 mg/dL (10/28/2024) - Creatinine: 0.51 mg/dL (10/28/2024) - Comprehensive Metabolic Panel (CMP): - Alkaline phosphatase: 130 U/L (slightly elevated) - AST: 11 U/L - ALT: 10 U/L - Urine protein/creatinine ratio: 187.1 mg/g - LDH: 114 U/L (low) Review of Systems Review of Systems Systems Reviewed: All systems reviewed, normal except as documented Visit LEXX Calculator Estimated Delivery Date Method Current WG Current Estimate 12/22/24 Ultrasound #2 36w 4d Other Estimates 11/23/24 LMP (Uncertain) 40w 5d 12/26/24 Ultrasound #1 36w 0d Initial Weight: Not Recorded Date <del>?</del> EGA Weight Edema CTX Effacement BP Fundal ht Pres Dilation Effacement Station Visit Note Alb Glu FHR Mov 10/28/24 <del>?</del> 32w 1d 75.296 kg 139/84 145 Exam General Limitations: no limitations General Appearance: alert, in no apparent distress, comfortable, cooperative, healthy appearing, well developed and well groomed Head Head exam: atraumatic, normocephalic and normal inspection Neck Neck exam: Present normal inspection, full ROM and trachea midline Chest Chest inspection: Present normal inspection and symmetric chest wall rise Abdominal Abdominal exam: Present soft and normal bowel sounds Extremities Extremities exam: Present normal inspection and full ROM Back Back exam: Present normal inspection and full ROM Psych Psychiatric exam: Present normal affect and normal mood Skin Skin exam: Present warm, dry, intact and normal color Assessment & Plan Diagnosis / Problem List (1) Chronic hypertension with exacerbation during : Status: Acute (2) Type 2 diabetes mellitus affecting in third trimester, antepartum: Status: Acute (3) Supervision of high risk , unspecified, third trimester: Status: Acute (4) Maternal care for low transverse scar from previous delivery: Status: Acute Plan Gestational hypertension Patient is a 24-year-old at 35 weeks and 1 day gestation with a history of gestational hypertension. She was seen in labor and delivery yesterday for a scheduled non-stress test and biophysical profile, where persistently elevated blood pressures were noted. The current antihypertensive regimen is insufficient to control her blood pressure. - Increase labetalol from 200 mg TID to 400 mg TID - Patient to start increased dosage immediately - New prescription to be sent to patient's pharmacy - Reassess blood pressure at next NST appointment on - Follow-up appointment in one week Type 2 diabetes mellitus in Patient has a history of type 2 diabetes. She reports checking her blood sugar levels regularly, and they are currently well-controlled. - Continue current diabetes management - Ongoing blood glucose monitoring , high-risk Patient is a 24-year-old at 35 weeks and 1 day gestation with comorbidities of gestational hypertension and type 2 diabetes. Recent non-stress test and biophysical profile were reassuring, with good amniotic fluid levels and activity. heart rate during this visit was 165 bpm, which is within normal range. - Continue regular non-stress tests and biophysical profiles - Next NST scheduled for - section scheduled for December 09 at 7:30 AM - Weekly follow-up appointments until delivery Medical Decision Making Kenneth Velarde is a 24-year-old at 35 weeks and 1 day gestation with a history of type 2 diabetes and gestational hypertension presenting for care follow-up after persistently elevated blood pressures during a recent non-stress test and biophysical profile. The patient's blood pressure remains uncontrolled despite current labetalol therapy, necessitating a dose increase from 200mg TID to 400mg TID. This adjustment is consistent with common progression in , as increased medication requirements often correlate with growth. The non-stress test and biophysical profile from the previous day were reassuring, with good amniotic fluid levels and no signs of distress. Blood glucose levels are reported as stable. The management plan focuses on optimizing blood pressure control while continuing to monitor well-being and maternal glucose levels, balancing the risks of hypertension in with the benefits of prolonging gestation to term. Pt Education Educated the patient on labor signs, including regular contractions, lower back pain, and changes in vaginal discharge. Advised avoiding heavy lifting and getting adequate rest. Instructed to contact the office immediately if any signs occur. Discussed the importance of a balanced diet rich in folic acid, iron, and calcium, and provided a list of recommended and to-avoid foods. Emphasized avoiding high-sugar foods to reduce gestational diabetes risk. Encouraged hydration and frequent, small meals for energy. Additional Plan Follow Up: 1 Week Office Procedures OB Clinic LOC & Office Proc's Nursing/Assessment Patient Status: Established Patient OB Clinic Nursing Assessment: Medication Reconciliation, Update PMH in EMR and Vital Signs OB Clinic Coordination of Care: Complex Care and Chronic Disease 1-5, Consent,records obtained, informed consent, Education Simp Pt/Fam, Lab and Imaging orders, Results/Orders obtained and Staff clarify orders Special Needs: Heart tones Established Patient Charge Established Patient Point Assignment: 135 Established Patient Point Charge: EP Level 4 (120-155)
== END 2024-11-18 10:06 | disposition home or self-care (01) ==
LOC: HODSOBC 09:35
PROVIDERS: PCP Obstetrics & Gynecology; Referring Provider Obstetrics & Gynecology; Supervising Provider Obstetrics & Gynecology; Visit Provider Obstetrics & Gynecology
DX: O10.913 Unspecified pre-existing hypertension complicating pregnancy, third trimester (principal); O24.313 Unspecified pre-existing diabetes mellitus in pregnancy, third trimester; E11.8 Type 2 diabetes mellitus with unspecified complications; O09.93 Supervision of high risk pregnancy, unspecified, third trimester; O34.211 Maternal care for low transverse scar from previous cesarean delivery; Z3A.35 35 weeks gestation of pregnancy
CPT/HCPCS: 99214; G0463

== ENCOUNTER 2024-11-20 17:00 | Observation (INO) | payer MEDICAID, SELFPAY ==
[2024-11-20] VITALS (39 sets, daily range): BP systolic 0–171; BP diastolic 0–107; PULSE 68–91; RESP 18–99; TEMP 36.6; O2SAT 89–100; BMI 33.5
[2024-11-20] MEDS: NIFEdipine 10 MG CAPSULE PO (17:25)
[2024-11-20 17:52] LABS: Collection Type, Urine Clean Catch
[2024-11-20 18:04] LABS: Basophils % (Auto) 0 % (0-2.5); Eosinophils # (Auto) 0.2 Thou/mm3 (0.0-0.5); Eosinophils % (Auto) 2 % (0-10); Hematocrit 32.6 % (36.0-46.0); Hemoglobin 11.2 g/dL (12.0-16.0); Immature Granulocytes % (Auto) 0 % (0-0); Immature Granulocytes Auto 0.04 Thou/mm3 (0.00-0.00); Lymphocytes # (Auto) 3.3 Thou/mm3 (1.0-4.8); Lymphocytes % (Auto) 36 % (10-50); Mean Corpuscular HGB Conc 34.4 g/dl (31.0-37.0); Mean Corpuscular Volume 82 fL (80-100); Monocytes # (Auto) 0.5 Thou/mm3 (0.0-0.8); Monocytes % (Auto) 6 % (0-12); Neutrophils # (Auto) 5.3 Thou/mm3 (1.8-7.7); Neutrophils % (Auto) 57 % (37-80); Nucleated Red Blood Cell % 0 /100 WBC (0); Platelet Count 191 Thou/mm3 (140-440); White Blood Count 9.4 Thou/mm3 (3.6-11.0)
[2024-11-20 18:16] LABS: Bacteria,Urine 1+; Bilirubin,Urine Negative (Negative); Blood,Urine Negative (Negative); Clarity,Urine Clear (Clear/Hazy); Color,Urine Yellow (Lt Yel-Yel); Glucose, Urine Negative (Negative); Ketones,Urine Negative (Negative); Leukocyte Esterase,Urine Negative (Negative); Nitrite,Urine Negative (Negative); PH,Urine 8.5 (5.0-7.0); Protein,Urine 1+ (Neg - Trace); RBC,Urine 2 /hpf (0-3); Specific Gravity,Urine 1.024 (1.001-1.035); Squamous Epithelial Cell,Urine 14 /hpf (0-5); Urobilinogen,Urine Negative mg/dL (0.0-1.0); WBC,Urine 1 /hpf (0-5)
[2024-11-20 18:27] LABS: Alanine Aminotransferase < 7 U/L (10-49); Albumin, Serum 3.8 gm/dL (3.5-5.0); Albumin/Globulin Ratio 1.4 (1.2-2.2); Alkaline Phosphatase 134 U/L (46-116); Anion Gap 11 (7-16); Aspartate Amino Transferase 12 U/L (0-34); BUN/Creatinine Ratio 15 Ratio (12-20); Bilirubin,Total 0.3 mg/dL (0.3-1.2); Blood Urea Nitrogen 9 mg/dL (9-23); Calcium 9.2 mg/dL (8.3-10.6); Calcium (Corrected) 9.4 mg/dL (8.5-10.1); Carbon Dioxide 20.4 mMol/L (20.0-31.0); Chloride 105 mMol/L (98-107); Creatinine (Component) 0.6 mg/dL (0.6-1.3); Estimated Creatinine Clearance 125.7 mL/min (>60); Globulin 2.8 gm/dL (2.3-3.5); Glucose 75 mg/dL (74-106); LDH (Lactate Dehydrogenase) 134 U/L (120-246); Osmolality,Calculated 269 (275-295); Potassium 3.7 mMol/L (3.4-5.1); Sodium 136 mMol/L (136-145); Total Protein 6.6 gm/dL (5.7-8.2); Uric Acid 5.6 mg/dL (3.1-7.8); eGFR > 60 See Note
[2024-11-20 18:38] LABS: Fibrinogen 587 mg/dL (175-375); INR 0.9 (0.9-1.3); Partial Thromboplastin Time 28.5 Seconds (22.0-36.0)
== END 2024-11-20 19:45 | disposition home or self-care (01) ==
PROVIDERS: Admitting Provider Obstetrics & Gynecology; Visit Provider Obstetrics & Gynecology
DX: O26.893 Other specified pregnancy related conditions, third trimester (principal); R03.0 Elevated blood-pressure reading, without diagnosis of hypertension; Z3A.35 35 weeks gestation of pregnancy
CPT/HCPCS: 36415; 59025; 59899; 80053; 81001; 83615; 84550; 85025; 85384; 85610; 85730; A9270

== ENCOUNTER 2024-11-25 10:08 | Outpatient (AMB) | payer MEDICAID, SELFPAY ==
--- NOTE | 2024-11-25 10:12 | AMB.OBVISIT ---
Vital Signs 11/25/24 10:17 Height 1.5 m Height Method Stated Weight 76.204 kg Weight Measurement Method Standing Scale BMI 33.9 BP 141/97 H Blood Pressure Source Automatic Cuff Blood Pressure Location Left Upper Arm Position Sitting Respiration 16 Pulse 74 Pulse Source Monitor Temp 97.8 F Temp Source Oral Pulse Oximetry (%) 98 Oxygen Delivery Method Room Air Allergies/Home Meds Allergies & Medications Allergies No Known Allergies Allergy (Verified 12/01/24 19:08) Medication Reconciliation metformin 500 mg tablet 500 mg PO BID 11/10/24 [History Confirmed 12/01/24] vit no.95-ferrous fumarate 28 mg-folic acid 800 mcg tablet () 1 tab PO DAILY 11/10/24 [History Confirmed 12/01/24] ferrous sulfate 325 mg (65 mg iron) tablet 325 mg PO QDAY #30 tabs 12/04/24 [Rx] nifedipine 30 mg tablet,extended release 24 hr 30 mg PO BID 30 days #60 tabs 12/04/24 [Rx] polyethylene glycol 3350 17 gram oral powder packet 17 g PO QDAY #14 ea 12/04/24 [Rx] labetalol 200 mg tablet 400 mg (2 x 200 mg) PO TID 30 days #180 tabs 12/05/24 [Rx] Intake Visit Data Collection New Patient or Established: Established Patient (seen at [facility] within 3 years) Reason for Visit:: CARE Seen by Clinical Staff ONLY (RN/MA): No 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 1. Little interest or pleasure in doing things: not at all 2. Feeling down, depressed, or hopeless: not at all Total score: 0 PHQ-9 3. Trouble falling or staying asleep, or sleeping too much: Not at all 4. Feeling tired or having little energy: Not at all 5. Poor appetite or overeating: Not at all 6. Feeling bad about yourself - or that you are a failure or have let yourself or your family down: Not at all 7. Trouble concentrating on things, such as reading the newspaper or watching television: Not at all 8. Moving or speaking so slowly that other people could have noticed? - Or the opposite - being so fidgety or restless that you have been moving around a lot more than usual: not at all 9. Thoughts that you would be better off or of hurting yourself in some way: Not at all Total score: 0 Source: Developed by Drs. Jadiel Miranda, Elsie Sosa, Reji Loco and colleagues, with an educational chelsea from [employer]. Depression screen completed yes Social History Living Situation History Lives With: Family Housing: House Tobacco History Smoking Status: Never smoker Second Hand Smoke Exposure: Yes Alcohol History Alcohol Intake: Never Substance Use History Substance Use: NONE Domestic Abuse History Do You Feel Safe at Home: Yes Past Medical History Past Medical History Have you ever been diagnosed with any of the following: Neurological Problems Cerebrovascular Accident (CVA): No Transient Ischemic Attacks (TIA): No Dementia: No Alzheimer's Disease: No Parkinson's Disease: No Brain Tumor: No Meningitis: No Seizures: No Epilepsy: No Multiple Sclerosis: No Cerebral Palsy: No Amyotrophic Lateral Sclerosis (ALS/Leesa Gehrig's): No Guillain-[place] Syndrome: No Spina Bifida: No Paralysis: No Peripheral Neuropathy: No Olson's Palsy: No Subdural Hematoma: No Migraine: No Head Trauma: No Spinal Cord Injury: No Traumatic Brain Injury: No Cardiology Problems Myocardial Infarction: No Cardiac Arrhythmia: No Atrial Fibrillation: No Angina: No Heart Murmur: No Coronary Artery Disease: No Atherosclerotic Heart Disease: No Peripheral Vascular Disease: No Hypercholesterolemia: No Aneurysm: No Congestive Heart Failure: No Congenital Heart Disease: No Valvular Heart Disease: No Rheumatic Fever: No Cardiomyopathy: No Edema: No Pericarditis: No Hypertension: Yes Hypotension: No Respiratory Problems Chronic Obstructive Pulmonary Disease (COPD): No Asthma: No Bronchitis: No Emphysema: No Pneumonia: No Pulmonary Fibrosis: No Tuberculosis: No Pulmonary Embolism: No Pulmonary Edema: No Sleep Apnea: No CPAP Dependent: No Respiratory Aspiration: No Smoking: No Smoking Cessation Counseling: No Smoking Exposure: No Tobacco Use: No Stomache/Intestinal Problems Liver Cancer: No Hepatitis: No Cirrhosis: No Pancreatic Cancer: No Pancreatitis: No Celiac Disease: No Ulcerative Colitis: No Diverticulitis: No Diverticulosis: No Ulcer: No Colorectal Cancer: No Irritable Bowel: No Crohn's Disease: No Obstructive Bowel: No Hiatal Hernia: No Hemorrhoids: No Gastroesophageal Reflux Disease: No Polyps: No Genital/Urinary Problems Chronic Kidney Disease: No Renal Disease: No Kidney Stones: No Polycystic Kidney Disease: No Neurogenic Bladder: No Inguinal Hernia: No Dialysis: No Prostate Cancer: No Benign Prostatic Hyperplasia: No Reproductive Problems Breast Cancer: No Endometriosis: No Fibroids: No Genital Herpes: No Gonorrhea: No Previous Pregnancies: Yes Syphilis: No Musculoskeletal Problems Muscular Dystrophy: No Myasthenia Gravis: No Marfan's Syndrome: No Bone Cancer: No Arthritis: No Rheumatoid Arthritis: No Osteoporosis: No Degenerative Disk Disease: No Gout: No Scoliosis: No Carpal Tunnel Syndrome: No Fibromyalgia: No Fractures: No Degenerative Joint Disease: No Osteomyelitis: No Poliovirus: No Head,Eye,Nose,Throat Problems Cataracts: No Glaucoma: No Blind: No Retinal Detachment: No Macular Degeneration: No Chronic Ear Infections: No Deafness: No Eye Prosthesis: No Endocrine Problems Diabetes Mellitus Type 1: No Diabetes Mellitus Type 2: No Tee's Syndrome: No Gretna's Disease: No Thyroid Cancer: No Parathyroid Disease: No Pituitary Disease: No Adrenal Disease: No Graves' Disease: No Blood Problems Anemia: No Leukemia: No Hemophilia: No Thalassemia: No Sickle Cell Disease: No Clotting Problems: No Psychologic Problems Schizophrenia: No Recreational Drug Use: No Bipolar Disorder: No Depression: No Anxiety: No Behavior Problems: No Self-Mutilation: No Attention Deficit Disorder: No Attention Deficit Hyperactivity Disorder: No Depression: No Post Traumatic Stress Disorder: No Eating Disorder: No Other Problems Hospitalization: No Down Syndrome: No Autism: No Developmental Delay: No Shingles: No Falls: No Blood Transfusions: No Blood Transfusion Reaction: No Anesthesia Reactions: No Organ Transplant: No Chemotherapy: No Radiation Therapy: No Hyperbaric Therapy: No MRSA: No VRSA: No Vancomycin-Resistant Enterococci: No Human Immunodeficiency Virus (HIV): No Chicken Pox: No Measles: No Mumps: No Rubella (Polish Measles): No Pertussis: No Clostridium Difficile: No Cancer: No Surgical History Angioplasty: No Appendectomy: No Bariatric Surgery: No Breast Surgery: No Cancer Surgery: No Carotid Endarterectomy: No Cholecystectomy: No Colectomy: No Hysterectomy: No Pacemaker: No Sinus Surgery: No History of Present Illness HPI Narrative The patient reports improved blood pressure compared to last week. She confirms taking her medication as prescribed. The patient states the fetus is active. She denies experiencing any contractions. The patient has been attending regular monitoring appointments on Mondays and , with her most recent visit occurring yesterday. No CTX/LOF/VB, reports good FM+ Repeat on 12/09/2024@07:30 Diagnostic Test Results and Labs: - Ultrasound (06-04-2024): 10-week 5-day ultrasound yields a due date of 12-25-2024 - Ultrasound (date not specified): 26 weeks and 3 days ultrasound is consistent with the first trimester ultrasound - Blood group: A positive - Hemoglobin: 13.8 - Platelet count: 183 - Rubella: Immune - RPR: Non-reactive - Hepatitis B: Negative - HIV: Negative - Gonorrhea and chlamydia: Negative - One-hour glucose: 178 - AFB: Negative - Hemoglobin: 11.3 g/dL (10/28/2024) - Random glucose: 137 mg/dL (10/28/2024) - Creatinine: 0.51 mg/dL (10/28/2024) - Comprehensive Metabolic Panel (CMP): - Alkaline phosphatase: 130 U/L (slightly elevated) - AST: 11 U/L - ALT: 10 U/L - Urine protein/creatinine ratio: 187.1 mg/g - LDH: 114 U/L (low) Review of Systems Review of Systems Systems Reviewed: All systems reviewed, normal except as documented Visit LEXX Calculator Estimated Delivery Date Method Current WG Current Estimate 12/22/24 Ultrasound #2 40w 4d Other Estimates 11/23/24 LMP (Uncertain) 44w 5d 12/26/24 Ultrasound #1 40w 0d Initial Weight: Not Recorded Date <del>?</del> EGA Weight Edema CTX Effacement BP Fundal ht Pres Dilation Effacement Station Visit Note Alb Glu FHR Mov 10/28/24 <del>?</del> 32w 1d 75.296 kg 139/84 145 Exam General Limitations: no limitations General Appearance: alert, in no apparent distress, comfortable, cooperative, healthy appearing, well developed and well groomed Head Head exam: atraumatic, normocephalic and normal inspection Neck Neck exam: Present normal inspection, full ROM and trachea midline Chest Chest inspection: Present normal inspection and symmetric chest wall rise Abdominal Abdominal exam: Present soft and normal bowel sounds Extremities Extremities exam: Present normal inspection and full ROM Back Back exam: Present normal inspection and full ROM Psych Psychiatric exam: Present normal affect and normal mood Skin Skin exam: Present warm, dry, intact and normal color Assessment & Plan Diagnosis / Problem List (1) Type 2 diabetes mellitus affecting in third trimester, antepartum: Status: Acute (2) Chronic hypertension with exacerbation during : Status: Acute Plan: Patient's blood pressure has improved compared to last week. Patient confirms compliance with prescribed medication. - Continue current antihypertensive medication - Blood pressure to be rechecked before leaving the clinic - Ongoing monitoring during twice weekly visits (3) Supervision of high risk , unspecified, third trimester: Status: Acute (4) Maternal care for low transverse scar from previous delivery: Status: Acute Plan: Patient is being monitored for with a planned section. Blood pressure has improved since the previous week. heart rate is normal at 145 bpm. Patient reports the baby is active and denies contractions. - section scheduled for December 09 - Continue twice weekly monitoring (Mondays and ) on the 4th floor - Follow-up appointment scheduled for next week, which will be the final visit before the section - Patient instructed to sit down, breathe slowly, and calm down for blood pressure recheck during this visit Additional Plan Follow Up: 1 Week Office Procedures OB Clinic LOC & Office Proc's Nursing/Assessment Patient Status: Established Patient OB Clinic Nursing Assessment: Medication Reconciliation, Update PMH in EMR and Vital Signs OB Clinic Coordination of Care: Complex Care and Chronic Disease 1-5, Consent,records obtained, informed consent, Education Simp Pt/Fam and Staff clarify orders Special Needs: Heart tones Established Patient Charge Established Patient Point Assignment: 115 Established Patient Point Charge: EP Level 3 (80-115)
[2024-11-25 10:17] VITALS: BP 141/97; PULSE 74; RESP 16; TEMP 36.6; O2SAT 98; BMI 33.9
== END 2024-11-25 10:47 | disposition home or self-care (01) ==
LOC: HODSOBC 10:08
PROVIDERS: Supervising Provider Obstetrics & Gynecology; Visit Provider Obstetrics & Gynecology
DX: O24.113 Pre-existing type 2 diabetes mellitus, in pregnancy, third trimester (principal); E11.9 Type 2 diabetes mellitus without complications; O10.913 Unspecified pre-existing hypertension complicating pregnancy, third trimester; O09.93 Supervision of high risk pregnancy, unspecified, third trimester; O34.211 Maternal care for low transverse scar from previous cesarean delivery
CPT/HCPCS: 99213; G0463

== ENCOUNTER 2024-12-01 15:14 | Outpatient (RCR) | payer MEDICAID, SELFPAY ==
--- NOTE | 2024-11-06 15:24 | XR_ITS ---
Examination: Biophysical profile, ultrasound Date and time of exam: November 06, 2024 1529 hrs. Indications: Diagnosis hypertension Technique: Multiple transabdominal sonographic images of the pelvis abdomen obtained. Attention is directed to the breathing movement, gross body movement, amniotic fluid volume and tone. Findings: Amniotic fluid index 16.4 cm Total biophysical profile is 8 of 8. breathing movement is 2. Gross body movement is 2. tone is 2. Qualitative amniotic fluid volume is 2 Impression: Biophysical profile is 8 of 8.
[2024-11-06 16:00] VITALS: BP 138/85; PULSE 77; RESP 16; TEMP 36.7
[2024-11-06 16:32] VITALS: BP 148/89; PULSE 88
[2024-11-06] MEDS: LABETALOL 100 MG TABLET 200 MG PO (16:32)
--- NOTE | 2024-11-13 15:30 | XR_ITS ---
Examination: Biophysical profile, ultrasound Date and time of exam: November 13, 2024 1536 hours INDICATIONS: -induced hypertension, gestational diabetes diagnosis Technique: Multiple transabdominal sonographic images of the pelvis abdomen obtained. Attention is directed to the breathing movement, gross body movement, amniotic fluid volume and tone. Findings: Amniotic fluid index 10.6 cm Total biophysical profile is 8 of 8. breathing movement is 2. Gross body movement is 2. tone is 2. Qualitative amniotic fluid volume is 2 Impression: Biophysical profile is 8 of 8.
[2024-11-13 16:03] VITALS: BP 151/93; PULSE 75; RESP 16; TEMP 36.7
[2024-11-13 16:40] VITALS: BP 150/91; PULSE 72
[2024-11-13] MEDS: LABETALOL 100 MG TABLET PO (16:40)
--- NOTE | 2024-11-17 15:18 | XR_ITS ---
Examination: Biophysical profile, ultrasound Date and time of exam: November 17, 2024 1526 hours INDICATIONS: Diabetes, diagnosis -induced hypertension Technique: Multiple transabdominal sonographic images of the pelvis abdomen obtained. Attention is directed to the breathing movement, gross body movement, amniotic fluid volume and tone. Findings: Amniotic fluid index 18 cm Total biophysical profile is 8 of 8. breathing movement is 2. Gross body movement is 2. tone is 2. Qualitative amniotic fluid volume is 2 Impression: Biophysical profile is 8 of 8.
[2024-11-17 16:11] VITALS: BP 125/77; PULSE 81; RESP 16; TEMP 36.7
--- NOTE | 2024-11-20 16:06 | XR_ITS ---
Examination: Biophysical profile, ultrasound Date and time of exam: November 20, 2024 1614 hours INDICATIONS: Diagnosis chronic hypertension, diagnosis gestational diabetes Technique: Multiple transabdominal sonographic images of the pelvis abdomen obtained. Attention is directed to the breathing movement, gross body movement, amniotic fluid volume and tone. Findings: Amniotic fluid index 17.4 cm Total biophysical profile is 8 of 8. breathing movement is 2. Gross body movement is 2. tone is 2. Qualitative amniotic fluid volume is 2 Impression: Biophysical profile is 8 of 8.
[2024-11-20 16:36] VITALS: BP 150/98; PULSE 75; RESP 16; TEMP 36.7
--- NOTE | 2024-11-24 15:33 | XR_ITS ---
Examination: Biophysical profile, ultrasound Date and time of exam: November 24, 2024 1534 hours INDICATIONS: Diagnosis chronic hypertension, diagnosis diabetes Technique: Multiple transabdominal sonographic images of the pelvis abdomen obtained. Attention is directed to the breathing movement, gross body movement, amniotic fluid volume and tone. Findings: Amniotic fluid index 10.7 cm Total biophysical profile is 8 of 8. breathing movement is 2. Gross body movement is 2. tone is 2. Qualitative amniotic fluid volume is 2 Impression: Biophysical profile is 8 of 8.
[2024-11-24 16:04] VITALS: BP 125/79; PULSE 83; RESP 16; TEMP 36.8
--- NOTE | 2024-11-27 15:15 | XR_ITS ---
Examination: Biophysical profile, ultrasound Date and time of exam: November 27, 2024 1526 hours INDICATIONS: Diagnosis gestational diabetes, diagnosis hypertension Technique: Multiple transabdominal sonographic images of the pelvis abdomen obtained. Attention is directed to the breathing movement, gross body movement, amniotic fluid volume and tone. Findings: Amniotic fluid index 13 cm Total biophysical profile is 8 of 8. breathing movement is 2. Gross body movement is 2. tone is 2. Qualitative amniotic fluid volume is 2 Impression: Biophysical profile is 8 of 8.
[2024-11-27 16:18] VITALS: BP 161/94; PULSE 78; RESP 16; TEMP 36.8
[2024-11-27 17:18] LABS: Collection Type, Urine Clean Catch
[2024-11-27 17:27] LABS: Bacteria,Urine Rare; Bilirubin,Urine Negative (Negative); Blood,Urine Negative (Negative); Clarity,Urine Clear (Clear/Hazy); Color,Urine Yellow (Lt Yel-Yel); Glucose, Urine Negative (Negative); Ketones,Urine Negative (Negative); Leukocyte Esterase,Urine Positive (Negative); Nitrite,Urine Negative (Negative); Protein,Urine 1+ (Neg - Trace); RBC,Urine 1 /hpf (0-3); Specific Gravity,Urine 1.027 (1.001-1.035); Squamous Epithelial Cell,Urine 7 /hpf (0-5); Urobilinogen,Urine Negative mg/dL (0.0-1.0); WBC,Urine 1 /hpf (0-5)
[2024-11-27 17:30] LABS: Creatinine,Random Urine 152 mg/dL (30-125); Protein Total, Random Urine 38 mg/dL (1-14)
[2024-11-27 17:54] LABS: Basophils % (Auto) 0 % (0-2.5); Eosinophils # (Auto) 0.1 Thou/mm3 (0.0-0.5); Eosinophils % (Auto) 1 % (0-10); Hematocrit 34.4 % (36.0-46.0); Hemoglobin 11.6 g/dL (12.0-16.0); Immature Granulocytes % (Auto) 0 % (0-0); Immature Granulocytes Auto 0.04 Thou/mm3 (0.00-0.00); Lymphocytes % (Auto) 33 % (10-50); Mean Corpuscular HGB Conc 33.7 g/dl (31.0-37.0); Mean Corpuscular Hemoglobin 27.8 pg (25.0-35.0); Mean Corpuscular Volume 82 fL (80-100); Monocytes # (Auto) 0.4 Thou/mm3 (0.0-0.8); Monocytes % (Auto) 5 % (0-12); Neutrophils # (Auto) 5.7 Thou/mm3 (1.8-7.7); Neutrophils % (Auto) 61 % (37-80); Nucleated Red Blood Cell % 0 /100 WBC (0); Platelet Count 182 Thou/mm3 (140-440); RDW Standard Deviation 41.4 fL (36.4-46.3); Red Blood Count 4.18 Miln/mm3 (4.00-5.20); White Blood Count 9.3 Thou/mm3 (3.6-11.0)
[2024-11-27 18:44] LABS: Alanine Aminotransferase < 7 U/L (10-49); Albumin/Globulin Ratio 1.4 (1.2-2.2); Alkaline Phosphatase 145 U/L (46-116); Anion Gap 13 (7-16); Aspartate Amino Transferase 17 U/L (0-34); BUN/Creatinine Ratio 13 Ratio (12-20); Bilirubin,Total 0.3 mg/dL (0.3-1.2); Blood Urea Nitrogen 9 mg/dL (9-23); Calcium 10.1 mg/dL (8.3-10.6); Calcium (Corrected) 10.1 mg/dL (8.5-10.1); Carbon Dioxide 20.3 mMol/L (20.0-31.0); Chloride 104 mMol/L (98-107); Creatinine (Component) 0.7 mg/dL (0.6-1.3); Globulin 2.8 gm/dL (2.3-3.5); Glucose 82 mg/dL (74-106); Osmolality,Calculated 271 (275-295); Potassium 3.9 mMol/L (3.4-5.1); Sodium 137 mMol/L (136-145); Total Protein 6.8 gm/dL (5.7-8.2); eGFR > 60 See Note
[2024-11-27 18:46] LABS: Fibrinogen 587 mg/dL (175-375); INR 0.9 (0.9-1.3); Partial Thromboplastin Time 28.2 Seconds (22.0-36.0); Prothrombin Time 10.2 Seconds (9.0-12.2)
[2024-11-27 20:37] LABS: LDH (Lactate Dehydrogenase) 193 U/L (120-246); Uric Acid 6.5 mg/dL (3.1-7.8)
--- NOTE | 2024-12-01 15:18 | XR_ITS ---
Examination: Biophysical profile, ultrasound Date and time of exam: December 01, 2024 1545 hrs. Indications: Diagnosis chronic hypertension, gestational diabetes Technique: Multiple transabdominal sonographic images of the pelvis abdomen obtained. Attention is directed to the breathing movement, gross body movement, amniotic fluid volume and tone. Findings: Amniotic fluid index 12.7 cm Total biophysical profile is 8 of 8. breathing movement is 2. Gross body movement is 2. tone is 2. Qualitative amniotic fluid volume is 2 Impression: Biophysical profile is 8 of 8.
[2024-12-01 16:42] VITALS: BP 185/109; RESP 16
[2024-12-01 17:20] VITALS: BP 185/109; PULSE 78
[2024-12-01] MEDS: LABETALOL INJ 5 MG/ML VIAL 20 ML 20 MG IVP (17:20)
[2024-12-01 17:38] VITALS: BP 212/124; PULSE 68
[2024-12-01] MEDS: LABETALOL INJ 5 MG/ML VIAL 20 ML 40 MG IVP (17:38)
[2024-12-01 17:48] LABS: Basophils % (Auto) 0 % (0-2.5); Eosinophils # (Auto) 0.1 Thou/mm3 (0.0-0.5); Eosinophils % (Auto) 1 % (0-10); Hematocrit 35.1 % (36.0-46.0); Hemoglobin 11.9 g/dL (12.0-16.0); Immature Granulocytes % (Auto) 0 % (0-0); Immature Granulocytes Auto 0.03 Thou/mm3 (0.00-0.00); Lymphocytes # (Auto) 3.5 Thou/mm3 (1.0-4.8); Lymphocytes % (Auto) 36 % (10-50); Mean Corpuscular HGB Conc 33.9 g/dl (31.0-37.0); Mean Corpuscular Hemoglobin 27.4 pg (25.0-35.0); Mean Corpuscular Volume 81 fL (80-100); Monocytes # (Auto) 0.5 Thou/mm3 (0.0-0.8); Monocytes % (Auto) 5 % (0-12); Neutrophils # (Auto) 5.6 Thou/mm3 (1.8-7.7); Neutrophils % (Auto) 58 % (37-80); Nucleated Red Blood Cell % 0 /100 WBC (0); Platelet Count 181 Thou/mm3 (140-440); RDW Standard Deviation 40.8 fL (36.4-46.3); Red Blood Count 4.34 Miln/mm3 (4.00-5.20); White Blood Count 9.8 Thou/mm3 (3.6-11.0)
[2024-12-01 18:10] VITALS: BP 202/129; PULSE 81
[2024-12-01] MEDS: hydrALAZINE INJ 20 MG/ML VIAL 10 MG IV (18:10)
[2024-12-01 18:15] LABS: Albumin, Serum 3.9 gm/dL (3.5-5.0); Albumin/Globulin Ratio 1.3 (1.2-2.2); Alkaline Phosphatase 159 U/L (46-116); Anion Gap 10 (7-16); Aspartate Amino Transferase 16 U/L (0-34); BUN/Creatinine Ratio 14 Ratio (12-20); Bilirubin,Total 0.4 mg/dL (0.3-1.2); Blood Urea Nitrogen 10 mg/dL (9-23); Calcium 9.7 mg/dL (8.3-10.6); Calcium (Corrected) 9.8 mg/dL (8.5-10.1); Carbon Dioxide 25.9 mMol/L (20.0-31.0); Chloride 101 mMol/L (98-107); Creatinine (Component) 0.7 mg/dL (0.6-1.3); Globulin 2.9 gm/dL (2.3-3.5); Glucose 66 mg/dL (74-106); Osmolality,Calculated 270 (275-295); Potassium 4.1 mMol/L (3.4-5.1); Sodium 137 mMol/L (136-145); Total Protein 6.8 gm/dL (5.7-8.2); eGFR > 60 See Note
[2024-12-01 18:15] LABS: Protein Total, Random Urine 15 mg/dL (1-14)
[2024-12-01 18:17] LABS: Creatinine,Random Urine 25 mg/dL (30-125)
[2024-12-01 18:21] LABS: Alanine Aminotransferase 8 U/L (10-49)
[2024-12-01 18:28] LABS: Syphilis Nonreactive (Nonreactive)
== END 2024-12-01 23:59 | disposition home or self-care (01) ==
LOC: S4S1 15:14
PROVIDERS: Obstetrics & Gynecology; PCP Obstetrics & Gynecology; Referring Provider Obstetrics & Gynecology; Visit Provider Obstetrics & Gynecology
DX: O24.113 Pre-existing type 2 diabetes mellitus, in pregnancy, third trimester (principal); E11.9 Type 2 diabetes mellitus without complications; O09.93 Supervision of high risk pregnancy, unspecified, third trimester; O34.211 Maternal care for low transverse scar from previous cesarean delivery; O10.913 Unspecified pre-existing hypertension complicating pregnancy, third trimester; Z3A.36 36 weeks gestation of pregnancy
CPT/HCPCS: 36415; 59025; 76819; 80053; 81001; 82570; 83615; 84156; 84550; 85025; 85384; 85610; 85730; 86780; 86850; 86900; 86901; 96374; J0360; J3490; A9270; J1920

== ENCOUNTER 2024-12-01 18:11 | Inpatient (IN) | payer MEDICAID, SELFPAY ==
[2024-12-01] VITALS (52 sets, daily range): BP systolic 115–205; BP diastolic 69–133; PULSE 70–91; RESP 16–98; TEMP 36.3–36.5; O2SAT 96–99; BMI 33.9
[2024-12-01] MEDS: Magnesium Sulfate 4 GM Ivpb 4 GM/50 ML BAG IV (18:28)
[2024-12-01] MEDS: hydrALAZINE INJ 20 MG/ML VIAL 10 MG IV (18:28)
--- NOTE | 2024-12-01 18:48 | PD.LDHP ---
Documentation for date of: 12/01/24 OB Labor/Induct. HPI History of Present Illness Chief complaint: antepartum testing : 3 Para: 1 Term pregnancies: 0 pregnancies: 1 Living children: 1 History of Abortions: Spontaneous and Elective: 1 History of Vaginal deliveries: 0 History of sections: Yes History of : No LEXX: 12/25/24 Gestational Age (weeks): 36 Gestational Age (days): 4 History of present illness: Kenneth is a 24yo with SIUP at 36w4d presenting for routine antepartum testing to follow GHTN and T2DM. She takes labetalol 400mg PO BID and metformin 500mg PO BID. She took both doses of her labetalol before presenting to triage today. She has hx of PTD at 32wk, delivered via section, for pre-eclampsia with severe features. She has recurrent severe range bp's on presentation. No MCMANUS currently (though she endorses she has had morning headaches lately that resolve over time), no vision changes, no RUQ pain. Normal movement. No regular/painful ctx, no lof, no vb. History of Present Dating criteria: based on 1st trimester US only Ultrasounds: normal 1st trimester US and normal mid trimester US Labs Narrative: Blood group A positive, rubella immune, RPR non-reactive, hepatitis B-negative, HIV-negative, gonorrhea and chlamydia-negative, one-hour glucose 178, and AFB negative. Review of Systems Review of Systems Narrative Review of Systems: Review of Systems Systems Reviewed: All systems reviewed, normal except as documented Constitutional Constitutional: Denies body ache(s), Denies chills, Denies fever(s) and Denies headache(s) ENT Ears, Nose, Mouth, and Throat: Denies headache(s) and Denies vertigo Cardiovascular Cardiovascular: Denies chest pain, Denies palpitations, Denies dyspnea and Denies syncope Respiratory Respiratory: Denies cough, Denies dyspnea Gastrointestinal Gastrointestinal: Denies nausea and Denies vomiting Neurologic Neurologic: Denies convulsions, Denies headache(s), Denies other visual disturbances, Denies syncope and Denies vertigo Past Medical History Family History OTHER FAMILY HX: non-contributory Surgical History SURGICAL: Positive Section OTHER SURGICAL HX: denies any other than Social History SOCIAL: Smokes <1 pack/day cigarettes for 10 years, no illicit drug use, no ETOH Past Medical History Comments PMH COMMENT: Hx of pre-eclampsia with severe features with pre-term delivery via Tobacco use T2DM Meds Home Medications and Allergies Home Medications ?Medication ?Instructions ?Recorded ?Confirmed ?Type metformin 500 mg tablet 500 mg PO BID 11/10/24 12/01/24 History vit no.95-ferrous 1 tab PO DAILY 11/10/24 12/01/24 History fumarate 28 mg-folic acid 800 mcg tablet () labetalol 200 mg tablet 400 mg PO TID 12/01/24 12/01/24 History Allergies Allergy/AdvReac Type Severity Reaction Status Date / Time No Known Allergies Allergy Verified 12/01/24 19:08 OB Exam Physical Exam Vital signs: Pulse BP Pulse Ox 85 190/102 H 98 12/01/24 18:43 12/01/24 18:43 12/01/24 18:44 General: well developed, well nourished, no acute distress, conversant Cardiac: normal heart rate Lungs: breathing without distress Abdomen: soft, gravid, non-tender, no rebound or guarding Extremities: trace edema of BLE Detailed Labor and Delivery Exam Membranes: intact monitor accelerations: 15x15 monitor decelerations: None retirement variability: Moderate (11-25) OB Assessment & Plan Assessment and Plan (1) Pre-eclampsia, severe, third trimester: Status: Acute Assessment and plan: Kenneth is a 24yo with SIUP at 36w4d with new diagnosis of pre-eclampsia with severe features based on recurrent severe range bp's and urine p:c of 0.6 (representing new proteinuria) after presenting for routine antepartum testing to follow GHTN and T2DM. She takes labetalol 400mg PO BID and metformin 500mg PO BID. She has hx of PTD at 33wk, delivered via section 3 years ago, for pre-eclampsia with severe features. She received multiple doses of IV labetalol and hydralazine in triage to address severe range bp's and IV MgSO4 was initiated. PIH labs wnl other than urine p:c 0.6. Plan: -Admit to L&D -Establish IV, routine labs -NPO -Counseled/consented re: section. Discussed all r/b/a to include: bleeding (possible need for blood transfusion), infection (subcutaneous, deeper layers or uterine with possible need for prolonged admission or re-admission for IV antibiotics, I&D with wound packing, etc), injury to nearby structures such as bladder, bowel, ureters, blood vessels, nerves with possible need for re-operation, pain, injury to baby, hysterectomy, DVT/PE, . Answered all questions to patient's satisfaction. -IV abx ppx: ancef 2g IV x1 -Continue IV MgSO4 with IV anti-hypertensives prn recurrent severe range bp's -Nursing and anesthesia team aware of plan for section. Will proceed to OR when team is ready (2) Type 2 diabetes mellitus affecting in third trimester, antepartum: Status: Acute (3) Chronic hypertension with exacerbation during : Status: Acute (4) Maternal care for low transverse scar from previous delivery: Status: Acute (3) Chronic hypertension with exacerbation during Qualifiers: Trimester: third trimester Qualified Code(s): O10.913 - Unspecified pre-existing hypertension complicating , third trimester
[2024-12-01] MEDS: MAGNESIUM SULF 20 GM IVPB 20 GM/500 ML BAG IV (18:58)
[2024-12-01] MEDS: ceFAZolin/D5W 2 GM IV 2 GM/100 ML BAG IV (19:19)
[2024-12-01] MEDS: CITRIC ACID/SODIUM CITR 15 ML UDC (BICITRA) 30 ML PO (19:19)
[2024-12-01] MEDS: FAMOTIDINE INJ 10 MG/ML VIAL 2 ML 20 MG IV (19:19)
[2024-12-01] MEDS: MISOPROSTOL 200 mCg TABLET 800 MCG PR (22:29)
--- NOTE | 2024-12-01 22:39 | PD.GYNPROC ---
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 She has been taking labetalol 400mg PO TID and metformin 500mg PO BID. On presentation, she was noted to have recurrent severe range bp's up to 200's systolic and received multiple pushes of IV anti-hypertensive medications, IV MgSO4 was initiated. Urine p:c 0.6. New diagnosis of pre-eclampsia WITH severe features, for which delivery became indicated. She has history of 1 prior section 3 years ago at 32wk for pre-eclampsia with severe features as well. After discussing dx and recommendations, all r/b/a of procedure, patient amenable to proceed. Pre-Op diagnosis: SIUP at 36w3d Pre-eclampsia with severe features T2DM Hx of prior section at 32wk for pre-eclampsia with severe features Tobacco use Post-Op diagnosis: SIUP at 36w3d Pre-eclampsia with severe features T2DM Hx of prior section at 32wk for pre-eclampsia with severe features Tobacco use Anesthesia type: Spinal Procedure description: After obtaining informed consent, the patient was taken to the operating room. There was reassuring heart rate tracing prior. Spinal anesthesia was administered. A rodriguez catheter was placed and bilateral sequential compression devices were placed. She was then prepped and draped in the normal sterile fashion in the dorsal supine position with left lateral tilt. A timeout was performed to confirm patient name, date of , procedure and indication. The team was in agreement. Spinal anesthesia was found to be adequate using an Allis clamp. Anceph 2g IV x1 were given for prophylaxis. A Pfannenstiel skin incision was then made with the scalpel and carried through to the underlying layer of fascia. The fascia was incised in the midine and the incision was extended laterally with the Ceballos scissors. The superior and inferior aspects of the fascial incision were then grasped with the Lino clamps, elevated and the underlying rectus muscles were dissected off bluntly and sharply. The peritoneum was entered digitally and the rectus muscles were then in the midline. The peritoneal incision was then extended superiorly and inferiorly with good visualization of the bladder. Bladder adhesed anteriorly up onto uterus. The vesicouterine peritoneum was identified, grasped with the pickups, and entered sharply with the Metzenbaum scissors. The incision was extended laterally and the bladder flap created digitally. Bladder blade placed. The lower uterine segment was scored in a transverse fashion with the scalpel. The uterus was then entered bluntly and the incision was extended with traction with clear amniotic fluid noted. The infant's head was elevated to the level of the incision. Fundal pressure was applied. The head was delivered atraumatically in the OA position. The anterior shoulder, posterior shoulder and corpus were delivered without difficulty. The nose and mouth were suctioned with bulb suction and cord was clamped x2 and cut. Infant was vigorous. The was handed off to the awaiting nursing team. Cord blood obtained for typing. The placenta was then removed with uterine massage and cord traction. The uterus was exteriorized and cleared of all clot and debris. The uterine incision was repaired with 0-vicryl suture in a running locking fashion. A second layer of O-vicryl was used to closed the hysterotomy incision in an imbricating fashion. The uterine incision was inspected and hemostasis was noted. In addition to standard IV pitocin, patient received TXA 1g IV x1. Good uterine tone was achieved and maintained. The posterior cul-de-sac was suctioned and the uterus returned to the abdomen. The gutters were cleared of all clot. Bladder blade was removed. The peritoneum was closed using a 3-0 vicryl suture in running fashion. The rectus muscles were inspected and one 0-vicryl figure of 8 was placed to reapproximate the rectus muscles in anatomic location. The fascia was reapproximated with 0-Vicryl suture in a running fashion. The subcutaneous tissue was then irrigated. Rupa's fascia was closed in 2 layers using 3-0 vicryl suture in a running fashion. At that point CHAUFFEUR MOTORBUS reapproximated the skin with 4-0 monocryl suture in running subcuticular fashion. The incision was cleaned with a wet lap and dried with a dry lap. [id number] bandage was applied overlying the incision and activated according to bankruptcy attorney instructions. Fundus was firm at U-1cm. Sponge, lap and needle counts were correct x2. Cytotec 800mcg NM was placed for prophylaxis against future bleeding since patient will continue on IV MgSO4 for 24hr post-. She will also receive another bag of IV pitocin. The procedure was without complications and the patient tolerated the procedure well. She was taken to recover further on Labor and Delivery, in stable condition. Fluids: crystalloid and other (albumin) Fluid amount (mL): 3,250 Urine output (mL): 500 Specimen: other (placenta and cord not sent to pathology) Estimated blood loss (ml): 850 Findings: Dense scarring in subcutaneous layer. Bladder adhesed anteriorly up onto uterus, bladder flap made with good plane created. Male infant in cephalic presentation, apgars 7/7/7, TOB 21:34, weight [id number]. Complications: none Surgical staff CHAUFFEUR MOTORBUS: Lisa Walls Operation Date: 12/03/24 12:45 <No data on this case meets the specified criteria> Diagnosis Discharge Diagnosis (1) delivery delivered: Status: Acute (2) Pre-eclampsia, severe, third trimester: Status: Acute (3) Type 2 diabetes mellitus affecting in third trimester, antepartum: Status: Acute (4) Maternal care for low transverse scar from previous delivery: Status: Acute Problem List Completed Was Problem List Reviewed/Reconciled?: Yes
[2024-12-01] MEDS: OXYTOCIN in NS 20 units 20 UNIT/1,000 ML BAG 125 UNIT IV (23:15)
[2024-12-02] VITALS (32 sets, daily range): BP systolic 118–178; BP diastolic 72–122; PULSE 58–96; RESP 16–98; TEMP 36.4–36.9; O2SAT 95–98
[2024-12-02] MEDS: LABETALOL 100 MG TABLET 400 MG PO (00:18)
[2024-12-02] MEDS: KETOROLAC INJ 30 MG/ML VIAL IVP ×4 (00:51→18:25)
[2024-12-02 05:22] LABS: Basophils % (Auto) 0 % (0-2.5); Eosinophils # (Auto) 0.1 Thou/mm3 (0.0-0.5); Eosinophils % (Auto) 0 % (0-10); Hematocrit 30.5 % (36.0-46.0); Hemoglobin 10.4 g/dL (12.0-16.0); Immature Granulocytes % (Auto) 0 % (0-0); Immature Granulocytes Auto 0.04 Thou/mm3 (0.00-0.00); Lymphocytes % (Auto) 24 % (10-50); Mean Corpuscular HGB Conc 34.1 g/dl (31.0-37.0); Mean Corpuscular Hemoglobin 27.5 pg (25.0-35.0); Mean Corpuscular Volume 81 fL (80-100); Monocytes # (Auto) 0.6 Thou/mm3 (0.0-0.8); Monocytes % (Auto) 5 % (0-12); Neutrophils % (Auto) 71 % (37-80); Nucleated Red Blood Cell % 0 /100 WBC (0); Platelet Count 147 Thou/mm3 (140-440); RDW Standard Deviation 41.2 fL (36.4-46.3); Red Blood Count 3.78 Miln/mm3 (4.00-5.20); White Blood Count 12.8 Thou/mm3 (3.6-11.0)
[2024-12-02 06:10] LABS: Alanine Aminotransferase 8 U/L (10-49); Albumin, Serum 3.3 gm/dL (3.5-5.0); Albumin/Globulin Ratio 1.4 (1.2-2.2); Alkaline Phosphatase 121 U/L (46-116); Anion Gap 9 (7-16); Aspartate Amino Transferase 20 U/L (0-34); BUN/Creatinine Ratio 12 Ratio (12-20); Bilirubin,Total 0.4 mg/dL (0.3-1.2); Blood Urea Nitrogen 7 mg/dL (9-23); Calcium (Corrected) 8.6 mg/dL (8.5-10.1); Carbon Dioxide 21.7 mMol/L (20.0-31.0); Chloride 101 mMol/L (98-107); Creatinine (Component) 0.6 mg/dL (0.6-1.3); Estimated Creatinine Clearance 170.9 mL/min (>60); Globulin 2.3 gm/dL (2.3-3.5); Glucose 107 mg/dL (74-106); Osmolality,Calculated 262 (275-295); Potassium 3.8 mMol/L (3.4-5.1); Sodium 132 mMol/L (136-145); Total Protein 5.6 gm/dL (5.7-8.2); eGFR > 60 See Note
[2024-12-02] MEDS: MAGNESIUM SULF 20 GM IVPB 20 GM/500 ML BAG IV ×2 (06:15→17:18)
[2024-12-02] MEDS: metFORMIN 500 MG TABLET PO ×2 (09:29→20:09)
[2024-12-02] MEDS: PRENATAL VITAMIN/FE FUM/FA TABLET 1 TAB PO (09:29)
[2024-12-02] MEDS: DOCUSATE SOD 100 MG CAPSULE PO (09:29)
[2024-12-02] MEDS: RINGERS LACTATED 1000 ML 1,000 ML 100 ML IV (10:33)
[2024-12-02 10:39] LABS: Magnesium > 5.0 mg/dL (1.6-2.6)
[2024-12-02] MEDS: NIFEdipine XL 30 MG TABCR PO ×2 (11:48→20:09)
--- NOTE | 2024-12-02 13:29 | PD.LDPPPRG ---
Subjective Subjective Interval history: Patient doing well overall. Pain is controlled. Receiving IV MgSO4 for 24hr PP for pre-eclampsia with severe features, so not yet ambulating. Rodriguez in place draining clear yellow urine. Tolerating carb consistent diet without nausea/vomiting. No fevers/chills, no CP/SOB. No MCMANUS, vision changes or RUQ pain. Baby in NICU. Exam Vital Signs Temp Pulse Resp BP Pulse Ox O2 Del Method 98.0 F 66 16 151/96 H 96 Room Air 12/02/24 06:20 12/02/24 11:48 12/02/24 06:20 12/02/24 11:48 12/02/24 06:20 12/02/24 06:20 Narrative Exam General: well developed, well nourished, no acute distress, conversant Cardiac: normal heart rate Lungs: breathing without distress Abdomen: soft, post-gravid, non-tender, no rebound or guarding, pfannenstiel incision covered by dry/clean/intact prineo bandage. Incision well reapproximated. No erythema, drainage or induration. Fundus firm at u-2cm. Extremities: no pain with palpation of calves, trace edema of BLE Objective Labs 12/02/24 05:08 12/02/24 05:08 Labs: Laboratory Results - last 24 hr 12/02/24 12/02/24 05:08 09:38 WBC 12.8 H RBC 3.78 L Hgb 10.4 L Hct 30.5 L MCV 81 MCH 27.5 MCHC 34.1 RDW Std Deviation 41.2 Plt Count 147 D Neut % (Auto) 71 Lymph % (Auto) 24 Morrison % (Auto) 5 Eos % (Auto) 0 Baso % (Auto) 0 Neut # (Auto) 9.0 H Lymph # (Auto) 3.0 Morrison # (Auto) 0.6 Eos # (Auto) 0.1 Baso # (Auto) 0.0 Immature Gran # (Auto) 0.04 H Absolute Nucleated RBC 0.00 Immature Gran % 0 Nucleated RBC % 0 Sodium 132 L Potassium 3.8 Chloride 101 Carbon Dioxide 21.7 Anion Gap 9 BUN 7 L Creatinine 0.6 Estim Creat Clear Calc 170.9 eGFR > 60 BUN/Creatinine Ratio 12 Glucose 107 H D Calculated Osmolality 262 L Calcium 8.0 L D Corrected Calcium 8.6 Magnesium > 5.0 H* Total Bilirubin 0.4 AST 20 ALT 8 L Alkaline Phosphatase 121 H D Total Protein 5.6 L Albumin 3.3 L D Globulin 2.3 Albumin/Globulin Ratio 1.4 Assessment & Plan Problem List (1) delivery delivered: Status: Acute Assessment and plan: Kenneth is a 24yo [id number] s/p uncomplicated RLTCS at 36&3wk for history of section and pre-eclampsia with severe features, doing well on POD 1. Delivered at 21:34 last night (12/01). She is receiving IV MgSO4 for 24hr PP. Vitals wnl, benign exam. She is hemodynamically stable with no evidence of infection. Post-op Hgb: 10.4 from 11.9 complicated by: -Hx of prior section -Development of pre-eclampsia with severe features after having dx of GHTN which was treated with labetalol 400mg PO TID -T2DM treated with metformin Plan: -Continue routine /post-op care -Continue IV MgSO4 until 24hr post- with Mg checks, neuro checks and rodriguez catheter in place for strict I/Os -Once IV MgSO4 is discontinued, remove rodriguez with 6hr due to void -Diet: carb consistent -BP med: discontinue labetalol and will trial nifedipine 30mg XL PO BID to see if this works better for her -Continue metformin 500mg PO BID with QID fingersticks -Toradol 30mg IV Q6hr x4 doses, then motrin 800mg PO Q8hr. For breakthrough: norco 5/325mg PO Q6hr prn pain -Encourage ambulation once IV MgSO4 is stopped as well as use of IS (2) Pre-eclampsia, severe, third trimester: Status: Acute (3) Type 2 diabetes mellitus affecting in third trimester, antepartum: Status: Acute (4) Maternal care for low transverse scar from previous delivery: Status: Acute Time Spent With Patient Time: Total time spent is greater than 50% in coordination of care (as documented) at patient's floor/unit and/or counseling patient:
[2024-12-02 15:52] LABS: Magnesium > 5.0 mg/dL (1.6-2.6)
[2024-12-02] MEDS: ACETAMINOPHEN 325 MG TABLET 650 MG PO (20:12)
[2024-12-02 21:55] LABS: Magnesium > 5.0 mg/dL (1.6-2.6)
--- NOTE | 2024-12-02 22:23 | PC.NURSE ---
Updated DR Esparza on pt status including vs and mag level. New order to DC IV Mag and Valenzuela catheter.
[2024-12-03] VITALS (11 sets, daily range): BP systolic 122–157; BP diastolic 75–101; PULSE 86–104; RESP 16–19; TEMP 36.7–37; O2SAT 96–98
[2024-12-03] MEDS: IBUPROFEN TAB 400 MG TABLET 800 MG PO ×4 (00:03→22:11)
[2024-12-03] MEDS: HYDROcodone/APAP 5/325 TABLET 1 TAB PO ×2 (05:39→20:52)
[2024-12-03] MEDS: NIFEdipine XL 30 MG TABCR PO ×2 (08:02→20:52)
[2024-12-03] MEDS: metFORMIN 500 MG TABLET PO ×2 (08:02→20:52)
[2024-12-03] MEDS: DOCUSATE SOD 100 MG CAPSULE PO (08:02)
[2024-12-03] MEDS: PRENATAL VITAMIN/FE FUM/FA TABLET 1 TAB PO (08:03)
[2024-12-03] MEDS: HYDROcodone/APAP 5/325 TABLET 2 TAB PO (10:54)
[2024-12-03] MEDS: LABETALOL 100 MG TABLET 200 MG PO ×2 (14:38→22:11)
--- NOTE | 2024-12-03 15:24 | PD.LDPPPRG ---
Subjective Subjective Interval history: Patient doing well overall. Pain is controlled. She is ambulating no lightheadedness/dizziness. Voiding spontaneously since rodriguez was removed, no issues. Tolerating regular diet without nausea/vomiting. Passing gas and has had a BM. No fevers/chills, no CP/SOB. No MCMANUS/vision changes/RUQ pain. Exam Vital Signs Temp Pulse Resp BP Pulse Ox O2 Del Method 98.4 F 88 17 152/92 H 97 Room Air 12/03/24 12:27 12/03/24 14:38 12/03/24 12:27 12/03/24 14:38 12/03/24 12:27 12/03/24 12:27 Narrative Exam General: well developed, well nourished, no acute distress, conversant Cardiac: normal heart rate Lungs: breathing without distress Abdomen: soft, post-gravid, non-tender, no rebound or guarding, pfannenstiel incision covered by dry/clean/intact prineo bandage. Incision well reapproximated. No erythema, drainage or induration. Fundus firm at u-2cm. Extremities: no pain with palpation of calves, trace edema of BLE Objective Labs 12/02/24 05:08 12/02/24 05:08 Labs: Laboratory Results - last 24 hr 12/02/24 12/02/24 15:12 20:35 Magnesium > 5.0 H* > 5.0 H* Assessment & Plan Problem List (1) delivery delivered: Status: Acute Assessment and plan: Kenneth is a 24yo [id number] s/p uncomplicated RLTCS at 36&3wk for history of section and pre-eclampsia with severe features, doing well on POD 2. Delivered at 21:34 on 12/02. She received IV MgSO4 for 24hr PP. BPs are mostly mild range recently. Benign exam. She is hemodynamically stable with no evidence of infection. Post-op Hgb: 10.4 from 11.9 complicated by: -Hx of prior section -Development of pre-eclampsia with severe features after having dx of GHTN which was treated with labetalol 400mg PO TID -T2DM treated with metformin Plan: -Continue routine /post-op care -Diet: carb consistent -BP med regimen: Continue Nifedipine 30mg XL PO BID, will add labetalol 200mg PO TID -Continue metformin 500mg PO BID with QID fingersticks -Motrin 800mg PO Q8hr. For breakthrough: norco 5/325mg PO Q6hr prn pain -Encourage ambulation once IV MgSO4 is stopped as well as use of IS -Hope for discharge home tomorrow if meeting all milestones with bp's well controlled (2) Pre-eclampsia, severe, third trimester: Status: Acute (3) Type 2 diabetes mellitus affecting in third trimester, antepartum: Status: Acute (4) Maternal care for low transverse scar from previous delivery: Status: Acute Time Spent With Patient Time: Total time spent is greater than 50% in coordination of care (as documented) at patient's floor/unit and/or counseling patient:
[2024-12-04] VITALS (14 sets, daily range): BP systolic 136–164; BP diastolic 89–111; PULSE 73–109; RESP 15–20; TEMP 36.8–37; O2SAT 95–98
[2024-12-04] MEDS: LABETALOL 100 MG TABLET 200 MG PO ×3 (06:02→15:02)
[2024-12-04] MEDS: PRENATAL VITAMIN/FE FUM/FA TABLET 1 TAB PO (09:41)
[2024-12-04] MEDS: NIFEdipine XL 30 MG TABCR PO ×2 (09:41→21:15)
[2024-12-04] MEDS: metFORMIN 500 MG TABLET PO ×2 (09:41→21:15)
[2024-12-04] MEDS: DOCUSATE SOD 100 MG CAPSULE PO (09:41)
[2024-12-04] MEDS: HYDROcodone/APAP 5/325 TABLET 1 TAB PO (09:41)
--- NOTE | 2024-12-04 11:28 | ESDS_ITS ---
DS: Providers Provider Date of admission: 12/01/24 18:11 Primary care physician: Nigel Manzanares MD Admitting Provider: Ciarra Esparza MD Attending Provider on Admission: Ciarra Esparza MD Consults: 12/01/24 22:34 Referral Routine Comment: Attending Provider on DC: Ciarra Esparza MD Discharging Provider: Ciarra Esparza MD DS: Diagnosis Discharge Diagnosis (1) delivery delivered: Status: Acute (2) Pre-eclampsia, severe, third trimester: Status: Acute (3) Type 2 diabetes mellitus affecting in third trimester, antepartum: Status: Acute (4) Chronic hypertension with exacerbation during : Status: Acute (5) Supervision of high risk , unspecified, third trimester: Status: Acute (6) Maternal care for low transverse scar from previous delivery: Status: Acute Problem List Completed Was Problem List Reviewed/Reconciled?: Yes Summary/Hosp Course Brief History: Kenneth is a 24yo [id number] s/p uncomplicated RLTCS at 36&3wk for history of section and pre-eclampsia with severe features, doing well on POD 3. Delivered at 21:34 on 12/02. She received IV MgSO4 for 24hr PP. BPs are mild range on regimen of nifedipine 30mg XL PO BID and labetalol 200mg PO TID. Benign exam. She is hemodynamically stable with no evidence of infection. Post-op Hgb: 10.4 from 11.9 She has had an otherwise uncomplicated post-operative course, meeting all milestones and feels ready for discharge home. She is ambulating without lightheadedness, tolerating regular diet no n/v, spontaneously voiding without issue. She has no chest pain or shortness of breath. No fevers or chills. No MCMANUS/vision changes/RUQ pain. Incisional pain well controlled with oral medications. complicated by: -Hx of prior section -Development of pre-eclampsia with severe features after having dx of GHTN which was treated with labetalol 400mg PO TID -T2DM treated with metformin Peripartum Data Procedures: Procedures Operation Date: 12/01/24 20:45 Actual Procedure Side Surgeon p in OB Ciarra Esparza MD Operation Date: 12/03/24 12:45 <No data on this case meets the specified criteria> Status at Discharge Functional status at discharge: independent ambulation Overall status at discharge: patient is back to baseline Time Spent with Patient Time attestation: Total time spent providing and/or coordinating discharge services: Exam Vital Signs Temp Pulse Resp BP Pulse Ox O2 Del Method 98.4 F 101 H 18 147/98 H 97 Room Air 12/04/24 09:26 12/04/24 09:41 12/04/24 09:26 12/04/24 09:41 12/04/24 09:26 12/04/24 09:26 Narrative Exam General: well developed, well nourished, no acute distress, conversant Cardiac: normal heart rate Lungs: breathing without distress Abdomen: soft, post-gravid, non-tender, no rebound or guarding, pfannenstiel incision covered by dry/clean/intact prineo bandage. Incision well reapproximated. No erythema, drainage or induration. Fundus firm at u-2cm. Extremities: no pain with palpation of calves, trace edema of BLE Discharge Plan Plan Patient Disposition: HOME (Self Care) Patient condition on transfer: Stable Prescriptions/Referrals Prescriptions/Med Rec: New hydrocodone-acetaminophen 5-325 mg Tablet 1 tab PO Q6H MDD 4 tabs PRN (Reason: Patient rated pain 7 to 8) 10 Days Qty: 12 0RF ibuprofen 800 mg tablet 800 mg PO Q8HR PRN (Reason: Abdominal Pain) 10 Days Qty: 30 0RF labetalol 200 mg tablet 200 mg PO TID 30 Days Qty: 90 0RF nifedipine 30 mg Tablet Extended Release 24hr 30 mg PO BID 30 Days Qty: 60 0RF ferrous sulfate 325 mg (65 mg iron) tablet 325 mg PO QDAY Qty: 30 0RF polyethylene glycol 3350 17 gram powder in packet 17 g PO QDAY Qty: 14 0RF Continued metformin 500 mg tablet 500 mg PO BID PNV cmb#95-ferrous fumarate-FA [] 28 mg iron- 800 mcg tablet 1 tab PO DAILY Patient Comments: TAKE 1 TABLET BY MOUTH ONCE DAILY Discontinued labetalol 200 mg tablet 400 mg PO TID Referrals: Nigel Manzanares MD [Primary Care Provider] - Patient/Caregiver Discharge Instructions Discharge Activity: activity as tolerated and other Other Discharge Activity Instructions:: vaginal rest and no heavy lifting more than 10 pounds for 6 weeks. no [address] while taking narcotic. keep incision cl saray and dry, do not submerge. Other Discharge Diet Instructions: diabetic diet Education Materials: Understanding Preeclampsia, C Section Dc Print Language: Telugu Activity Restrictions/Additional Instructions: Follow up with Dr. Beckett in 1 week for incision check and bp check. Call clinic for appointment. Stand Alone Forms: [employer] Award Info., Patient Portal Info Letter Discharge Order Discharge Orders: Discharge (Routine); Ordered 12/04/24 Ordered By: Ciarra Esparza Planned Discharge Date 12/04/24 (4) Chronic hypertension with exacerbation during Qualifiers: Trimester: third trimester Qualified Code(s): O10.913 - Unspecified pre- existing hypertension complicating , third trimester
[2024-12-04] MEDS: IBUPROFEN TAB 400 MG TABLET 800 MG PO ×2 (11:30→21:15)
[2024-12-04] MEDS: DIPHTH,PERTUSS(ACELL),TET VAC 0.5 ML SYR- ADULT IMi (13:13)
[2024-12-04] MEDS: LABETALOL 100 MG TABLET 400 MG PO (22:31)
[2024-12-05 04:15] VITALS: BP 138/87; PULSE 89; RESP 17; TEMP 36.7; O2SAT 97
[2024-12-05] MEDS: IBUPROFEN TAB 400 MG TABLET 800 MG PO (05:56)
[2024-12-05 05:57] VITALS: BP 149/99; PULSE 95
[2024-12-05] MEDS: LABETALOL 100 MG TABLET 400 MG PO (05:57)
[2024-12-05 08:00] VITALS: BP 128/84; PULSE 82; RESP 20; TEMP 36.8; O2SAT 97
[2024-12-05 08:02] VITALS: BP 129/84; PULSE 82
[2024-12-05] MEDS: metFORMIN 500 MG TABLET PO (08:02)
[2024-12-05] MEDS: PRENATAL VITAMIN/FE FUM/FA TABLET 1 TAB PO (08:02)
[2024-12-05] MEDS: NIFEdipine XL 30 MG TABCR PO (08:02)
[2024-12-05] MEDS: DOCUSATE SOD 100 MG CAPSULE PO (08:02)
[2024-12-05 12:00] VITALS: BP 147/101; PULSE 96; RESP 17; TEMP 36.5; O2SAT 99
== END 2024-12-05 12:45 | disposition home or self-care (01) | DRG 540 ==
LOC: S4SX 19:37 → S4NX 21:07
PROVIDERS: Admitting Provider Obstetrics & Gynecology; PCP Obstetrics & Gynecology; Visit Provider Obstetrics & Gynecology
PROC: 10D00Z1 Extraction of Products of Conception, Low, Open Approach (ICD-10-PCS; CPT 59514; principal; 2024-12-01 20:00)
DX: O34.211 Maternal care for low transverse scar from previous cesarean delivery (principal); O14.14 Severe pre-eclampsia complicating childbirth; O24.12 Pre-existing type 2 diabetes mellitus, in childbirth; O10.92 Unspecified pre-existing hypertension complicating childbirth; Z3A.36 36 weeks gestation of pregnancy; Z37.0 Single live birth; O99.334 Smoking (tobacco) complicating childbirth; F17.210 Nicotine dependence, cigarettes, uncomplicated; Z79.84 Long term (current) use of oral hypoglycemic drugs
CPT/HCPCS: 36415; 59409; 80053; 83735; 85025; 90715; 94664; 94762; A4649; J0360; J0689; J1885; J2274; J2405; J2590; J3010; J3475; J3490; J7120; P9045; S0191; A9270; J2270

== ENCOUNTER 2025-02-01 21:10 | Emergency (ER) | payer MEDICAID, SELFPAY ==
[2025-02-01 21:11] VITALS: BMI 32.1
[2025-02-01 21:17] VITALS: BP 175/99; PULSE 93; RESP 18; TEMP 37; O2SAT 98
--- NOTE | 2025-02-01 21:21 | PD.EDSKIN ---
ED Skin Abcess FB-RME/HPI General Chief complaint: Skin/Abscess/Foreign Body Stated complaint: allergic reaction Time Seen by Provider: 02/01/25 21:16 Arrival date/time: 02/01/25 21:10 Limitations: no limitations RME / HPI RME / HPI narrative: 24-year-old female here for rash x 2 days. States very itchy. No known history of allergies. States rash looks like little itchy bubbles. Now even eyes are itchy. No tongue swelling no shortness of breath no difficulty swallowing. Did eat [place] food 2 days ago and noticed after she ate shrimp by the next day was itching but did not think much of it. No nausea vomiting diarrhea. Has appointment with PCP in 3 days. Related Data Home Medications ?Medication ?Instructions ?Recorded ?Confirmed metformin 500 mg tablet 500 mg PO BID 11/10/24 12/01/24 vit no.95-ferrous 1 tab PO DAILY 11/10/24 12/01/24 fumarate 28 mg-folic acid 800 mcg tablet () Previous Rx's ?Medication ?Instructions ?Recorded ferrous sulfate 325 mg (65 mg 325 mg PO QDAY #30 tabs 12/04/24 iron) tablet polyethylene glycol 3350 17 gram 17 g PO QDAY #14 ea 12/04/24 oral powder packet diphenhydramine HCl 25 mg capsule 50 mg (2 x 25 mg) PO Q8H PRN 02/01/25 (Benadryl) allergy symptoms #20 caps famotidine 20 mg tablet (Pepcid) 20 mg PO QDAY #14 tabs 02/01/25 prednisone 20 mg tablet 40 mg PO QDAY 5 days #10 tabs 02/01/25 Allergies Allergy/AdvReac Type Severity Reaction Status Date / Time No Known Allergies Allergy Verified 12/01/24 19:08 Review of Systems Review of Systems Systems Reviewed: All systems reviewed, normal except as documented Constitutional Constitutional: Denies fever(s) Integumentary/Breasts Skin/Breast: Reports as per HPI ED Exam General Limitations: Present no limitations General appearance: Present alert and in no apparent distress Head Head exam: Present atraumatic Eye Eye exam: Present normal appearance, PERRL and EOMI ENT ENT exam: Present normal exam, normal oropharynx and mucous membranes moist Neck Neck exam: Present normal inspection, full ROM and trachea midline Chest Chest inspection: Present normal inspection and symmetric chest wall rise Respiratory Respiratory exam: Present normal lung sounds bilaterally Cardiovascular Cardiovascular exam: Present regular rate, normal rhythm and normal heart sounds Abdominal Exam Abdominal exam: Present soft and normal bowel sounds Extremities Exam Extremities exam: Present normal inspection and full ROM Back Exam Back exam: Present normal inspection and full ROM Skin Skin exam: Present warm, dry, intact and other (Blanching urticarial wheals to torso arms legs; no angioedema) Course Quality Measures none Orders Category Date Time Status Dexamethasone Inj [Decadron Inj] Med 02/01/25 21:21 Discontinued 10 mg PO X1 ONE DiphenhydrAMINE [Benadryl] Med 02/01/25 21:21 Discontinued 50 mg PO X1 ONE Famotidine [Pepcid] Med 02/01/25 21:21 Discontinued 40 mg PO X1 ONE Vital Signs Vital signs: Vital Signs Temperature 98.6 F 02/01/25 21:17 Pulse Rate 93 02/01/25 21:17 Respiratory Rate 18 02/01/25 21:17 Blood Pressure 175/99 H 02/01/25 21:17 Pulse Oximetry (%) 98 02/01/25 21:17 Oxygen Delivery Method Room Air 02/01/25 21:17 Skin / Abscess / Foreign Body MDM Narrative MDM Narrative:: Discussed with patient we will treat allergic reaction should have RAST testing done by PCP. Follow-up with PCP return to ER symptoms worsen Patient data External records reviewed:: [facility] previous records Clinical information provided by:: patient Social determinants that could affect healthcare access:: other (specify) (No PCP appointment on the weekend) Patient has the following chronic illnesses:: None How is presenting disease/condition affected by chronic disease/condition?: no chronic disease Evaluation data The following diagnostics were reviewed and interpreted by me:: other (specify) (None) Lab and/or radiology exams considered but not ordered:: No emergent labs are warranted at this time based on clinical picture Interpretation Summary: No imaging or labs ordered Medications / Prescriptions Medications or Prescriptions considered but not ordered:: All medications considered were given, epi not warranted at this time Medication administrations:: Medication Administration History Discontinued Medications Dexamethasone Sodium Phosphate (Dexamethasone Sod Phos Inj 10 Mg/Ml Vial) 10 mg PO X1 ONE Stop: 02/01/25 21:22 Last Admin: 02/01/25 21:48 Dose: Not Given Documented By: KF Non-Admin Reason: Other, see note Diphenhydramine HCl (Diphenhydramine Elix 25 Mg/10 Ml Udc) 50 mg PO X1 ONE Stop: 02/01/25 21:22 Last Admin: 02/01/25 21:47 Dose: 50 mg Documented By: SAYDA Famotidine (Famotidine 20 Mg Tablet) 40 mg PO X1 ONE Stop: 02/01/25 21:22 Last Admin: 02/01/25 21:48 Dose: 40 mg Documented By: SAYDA Rx for home and advised should have RAST test Consultations Consultation(s) initiated? (list below): No Diagnosis Skin/Abscess Differential Diagnosis: abscess of skin or subcutaneous tissue, viral exanthem, dermatophytosis and urticaria Most likely diagnosis given after review of the tests above:: Allergic reaction Admission Indicated Admission indicated?: not indicated Admission Request Was there a request for admission?: No Disposition Plan Disposition Plan: Discharge Discharge Attestation Discharge Attestation: The patient and all family members were given an opportunity to ask questions and understood the discharge instructions. Discharge instructions specifically effects, indications for sooner follow up or return to the emergency department, and the expected course of current diagnosis. Patient condition: Stable Discharge Plan Plan Patient Disposition: HOME (Self Care) Discharge Disposition comment: fu with pcp in 2-3days Prescriptions/Referrals Prescriptions/Med Rec: New famotidine [Pepcid] 20 mg tablet 20 mg PO QDAY Qty: 14 0RF diphenhydramine HCl [Benadryl] 25 mg capsule 50 mg PO Q8H PRN (Reason: allergy symptoms) Qty: 20 0RF prednisone 20 mg tablet 40 mg PO QDAY 5 Days Qty: 10 0RF Taper: Prednisone Taper 20 mg DAILY for 2 Days and 0 Hour 10 mg DAILY for 2 Days and 0 Hour 5 mg DAILY for 7 Days and 0 Hour No Action metformin 500 mg tablet 500 mg PO BID PNV cmb#95-ferrous fumarate-FA [] 28 mg iron- 800 mcg tablet 1 tab PO DAILY Patient Comments: TAKE 1 TABLET BY MOUTH ONCE DAILY ferrous sulfate 325 mg (65 mg iron) tablet 325 mg PO QDAY Qty: 30 0RF polyethylene glycol 3350 17 gram powder in packet 17 g PO QDAY Qty: 14 0RF Problem List Clinical Impression: Urticaria, Allergy to food Patient/Caregiver Discharge Instructions Education Materials: ED Hives (Adult) Print Language: Cypriot Stand Alone Forms: Faina Award Info., Patient Portal Info Letter PA/SANITATION ENGINEER Supervising Physician PA/SANITATION ENGINEER Supervising Physician: Dr. trejo
[2025-02-01] MEDS: DiphenhydrAMINE ELIX 25 MG/10 ML UDC 50 MG PO (21:47)
[2025-02-01] MEDS: FAMOTIDINE 20 MG TABLET 40 MG PO (21:48)
== END 2025-02-02 00:53 | disposition home or self-care (01) ==
LOC: SERX 21:42
PROVIDERS: Emergency Provider Emergency Medicine
DX: T78.1XXA Other adverse food reactions, not elsewhere classified, initial encounter (principal); L50.0 Allergic urticaria
CPT/HCPCS: 99282; A9270